=== PATIENT | female | born 1940 | race Caucasian/White ===

== ENCOUNTER 2018-03-24 11:48 | Inpatient (IN) ==
[2018-03-24] MEDS ORDERED: Mag Hydrox/Al Hydrox/Simeth 30 ML UDC PO PRN (22:29)
[2018-03-24] MEDS: Mirtazapine 15 MG TABLET PO SCH (23:45)
[2018-03-24] MEDS: Ipratropium/Albuterol Neb 3 ML IH SCH (23:47)
[2018-03-25] MEDS: Magic Mouthwash 10 ML UD Cup PO SCH ×4 (01:50→19:00)
[2018-03-25 06:21] LABS: INR 2.1; Prothrombin Time 23.3 Seconds (9.4-12.1)
[2018-03-25 06:23] LABS: Basophils # 0.1 K/mcL (0.0-0.2); Basophils % 0.3 %; Eosinophils % 0.1 %; Hematocrit 30.4 % (35.3-44.9); Hemoglobin 9.3 g/dL (11.5-15.4); Immature Granulocytes % 3.6 % (0-4); Lymphocytes # 1.6 K/mcL (0.6-4.6); Lymphocytes % 5.7 %; Mean Corpuscular HGB Conc 30.6 g/dL (31.6-35.5); Mean Corpuscular Hemoglobin 25.7 pg (28.0-33.3); Mean Platelet Volume 12.4 fL (9.4-12.4); Monocytes # 13.7 K/mcL (0.0-1.3); Monocytes % 49.2 %; Neutrophils # 11.5 K/mcL (1.6-8.9); Platelet Count 137 K/mcL (140-400); Red Blood Count 3.62 M/mcL (3.82-4.97); Red Cell Distribution Width 17.3 % (11.5-14.5); Segmented Neutrophils % 41.1 %
[2018-03-25 06:24] LABS: Activated Partial Thrombo Time 41.3 Seconds (26.0-36.0)
[2018-03-25 06:33] LABS: Alanine Aminotransferase 8 Units/L (7-52); Albumin 3.5 g/dL (3.5-5.7); Albumin/Globulin Ratio 1.3 (1.1-2.2); Alkaline Phosphatase 47 Units/L (34-104); Aspartate Amino Transferase 8 Units/L (13-39); BUN/Creatinine Ratio 20 (6-26); Bilirubin,Total 1.6 mg/dL (0.3-1.0); Blood Urea Nitrogen 12 mg/dL (8-23); Calcium 8.8 mg/dL (8.6-10.3); Carbon Dioxide 29 mEq/L (23-29); Chloride 103 mEq/L (98-107); Globulin 2.7 g/dL (2.4-3.5); Glucose 87 mg/dL (70-105); Magnesium 1.7 mg/dL (1.6-2.6); Osmolality,Calculated 287 (280-300); Potassium 3.4 mEq/L (3.5-5.1); Sodium 139 mEq/L (136-145); Total Protein 6.2 g/dL (6.4-8.9); eGFR For Non-African Americans > 60 (> 60)
[2018-03-25] MEDS: Ascorbic Acid 500 MG TABLET PO SCH (08:58)
[2018-03-25] MEDS: Fluconazole 100 MG TABLET PO SCH (08:58)
[2018-03-25] MEDS: Magnesium Oxide 400 MG TABLET PO SCH (08:58)
[2018-03-25] MEDS: traMADol 50 MG TABLET PO PRN ×2 (08:59→20:45)
[2018-03-25] MEDS ORDERED: Calcium 500-Vit D3 PO SCH (09:00)
[2018-03-25] MEDS: Ipratropium/Albuterol Neb 3 ML IH SCH ×2 (09:01→12:32)
[2018-03-25] MEDS: Apixaban 5 MG TABLET PO SCH ×2 (09:03→18:13)
[2018-03-25] MEDS: Ondansetron ODT 4 MG TAB.RAPDIS PO PRN (10:15)
[2018-03-25] MEDS ORDERED: Ipratropium/Albuterol Neb 3 ML IH PRN (12:34)
--- NOTE | 2018-03-25 13:24 | Internal Med History&Physical ---
Date of Encounter: 03/25/18 Time of Encounter: 11:20 Assessment and Plan (1) Weakness Current visit: No Status: Acute This is probably related to her weakness from malnutrition, her prior strokes, and her many recent illness episodes. We will support patient medically and she will undergo therapies to return her to functionality. She would like to return home and yet I suspect that she will require long-term care after rehabilitation here. Hopefully, we will see and offer improvement in strength that she can return home, sometimes soon. (2) COPD (chronic obstructive pulmonary disease) Current visit: No Status: Resolved This is apparently mild enough that she does not require home oxygen or nebulizers on a routine basis. Qualifiers: COPD type: COPD with acute exacerbation Qualified Code(s): J44.1 - Chronic obstructive pulmonary disease with (acute) exacerbation (3) DVT prophylaxis Current visit: No Status: Acute She is on Eliquis as noted above. 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 Qualifiers: Leukemia Active/Remission status: in remission Qualified Code(s): C93.11 - Chronic myelomonocytic leukemia, in remission (5) Afib Current visit: No Status: Chronic Currently, her rate and rhythm appear to be normal sinus rhythm. This is by clinical assessment only. Qualifiers: Atrial fibrillation type: paroxysmal Qualified Code(s): I48.0 - Paroxysmal atrial fibrillation (6) Abnormal CT of the chest Current visit: No Status: Acute Per her history, this is been present for at least 2 years and no change in s ize. (7) Severe protein-calorie malnutrition Current visit: No Status: Chronic We will consult nutrition services and follow. (8) Thrombocytopenia Current visit: No Status: Chronic We will follow. This is presumed to relate to her CMML. (9) KATJA (acute kidney injury) Current visit: No Status: Resolved This is not acute but we will follow. (10) Thrush, oral Current visit: Yes Status: Acute We have empirically begun Diflucan for same. (11) History of cold-induced urticaria Current visit: Yes Status: Acute Given her multiple strokes and other symptoms, we will obtain cold movements and further evaluate as time allows. (12) CVA (cerebral vascular accident) Current visit: Yes Status: Acute This is apparently recurrent and old. The patient denies hyperlipidemia but she is on a statin drug for uncertain reasons, apparently prophylactic. Qualifiers: CVA mechanism: unspecified Qualified Code(s): I63.9 - Cerebral infarction, unspecified Internal Medicine - H&P: HPI Chief complaint: Weakness Admitted From: Hospital to Hospital Transfer Plans for Post Hospital Care: Transfer [facility] History of present illness: Ms. Michelle is a 78 year old female with an extensive medical history who was in her usual state of health, recently, until 03/14/2018. Then she had cough and dyspnea. She was admitted and found to have pneumonia, required intubation. She had an episode of PA and underwent to episodes of ACLS with resumption of circulation, thereafter. This was felt to be aspiration related to her receiving liquids that were too thin. She has chest wall pain, anteriorly, after her CPR. She has been doing progressively better and is now admitted for weakness and reconditioning, here. The patient notes that her tongue is starting to hurt. His been years since she had her last episode of thrush and it was much worse than this. However, symptoms of her tongue seem like early thrush, to her. She has no dysphagia now but did the last time that she had thrush. Past medical history was reviewed with her. She has allergies as listed. She had paroxysmal atrial fibrillation and underwent catheter ablation in August. However, they punctured her heart and she developed effusions which required 3 chest tubes to correct, over time. She has been on Eliquis for some time. The Eliquis was held at the time of her cardiac arrest because she developed blood in her chest and this was cleared by bronchoscopy. Her Eliquis was resumed. She has had multiple episodes of pneumonia and was admitted for same, in the past. She had a recurrent localized effusion, at the time of her recent pneumonia and was intubated for same on this admission. She is known to have a 2 to three-year history of nodules in her neck and a large nodule in her lung but this is apparently remained stable and is felt to be benign. 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 Her white blood count was recently as high as 40,000+ but returned to low low 30s which apparently is somewhere near her baseline. She has 3 strokes which have mainly made her leg, left worse than right, and have caused her to be unstable. Nothing has been worse, recently. However, when she is weakened from other illnesses, her leg weakness and instability increase. She had an MRI this admission which failed to show any evidence of new stroke. 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 She states that if any part of her body becomes cold she develops itching, urticaria, and swelling. She states that even ice cream will make her throat swell. She is unaware of cold agglutinins. However, she was treated for 10 days with doxycycline which began 03/04/2018. She is also on prednisone 40 mg daily but is not sure as to why. She has been constipated most of her life but has developed irritable bowel syndrome with diarrhea, or the last couple of years. She has not had a bowel movement for several days and we discussed use of laxatives, if she does not have one soon. She has been malnourished since August when she had her catheter ablation. She was taking iron in the remote past but has not been taking this for quite some time, even though it is listed on her home medication list. Past Med Surg Social Fam HX - Past Medical History Medical history: atrial fibrillation, COPD, CVA, GERD, hypertension Additional medical history: chronic myeloid leukemia, anemia, cerebral infarction Psychiatric history: anxiety - Past Surgical History Surgical History: no surgical history Additional surgical history: cardiac surgery - Social History Smoking Status: Never smoker Smokeless Tobacco Status: No Alcohol use: none Drug use: none - Family History Father Living Status: Hx Family Cardiac Disorders: No Hx Family Respiratory Disorders: Yes (lung cancer) Hx Family Cancer: Yes (lung cancer) Hx Family GI Disorders: No Hx Family Endocrine Disorder: No Hx Family Neuromuscular Disorders: No Hx Family Neurologic Disorders: No Hx Family HEENT Disorders: No Hx Family Autoimmune Disorders: No Mother Living Status: Hx Family Cardiac Disorders: No Hx Family Respiratory Disorders: No Hx Family Cancer: No Hx Family GI Disorders: No Hx Family Endocrine Disorder: No Hx Family Neuromuscular Disorders: No Hx Family Neurologic Disorders: No Hx Family HEENT Disorders: No Hx Family Autoimmune Disorders: No Sister Living Status: Still Living Hx Family Cardiac Disorders: Yes (heart murmur) Hx Family Respiratory Disorders: No Hx Family Cancer: No Hx Family GI Disorders: No Hx Family Endocrine Disorder: No Hx Family Neuromuscular Disorders: No Hx Family Neurologic Disorders: No Hx Family HEENT Disorders: No Hx Family Autoimmune Disorders: No Son Living Status: Still Living Hx Family Cardiac Disorders: Yes (heart defect) Hx Family Respiratory Disorders: No Hx Family Cancer: No Hx Family GI Disorders: No Hx Family Endocrine Disorder: No Hx Family Neuromuscular Disorders: No Hx Family Neurologic Disorders: Yes Hx Family HEENT Disorders: No Hx Family Autoimmune Disorders: No Internal Medicine - H&P: Meds Sotalol [Betapace] 40 mg PO QAM 09/19/14 [History] Sotalol [Betapace] 80 mg PO HS 05/23/16 [History] Acetaminophen [Tylenol] 650 mg PO Q4H PRN 02/16/18 [History] Apixaban [Eliquis] 5 mg PO 0800,1900 02/16/18 [History] Ascorbic Acid [Vitamin C] 250 mg PO DAILY 02/16/18 [History] Atorvastatin [Lipitor] 20 mg PO HS 02/16/18 [History] Calcium Carbonate/Vitamin D3 [Calcium 500-Vit D3 200 Tablet] 1 each PO BID 02/16/18 [History] Ipratropium/Albuterol Neb [Duoneb] 3 ml IH 0800,1200,1600,2000 02/16/18 [History] Loperamide HCl [Imodium A-D] 2 mg PO AD PRN 02/16/18 [History] Mag Hydrox/Aluminum Hyd/Simeth [Cvs Antacid Plus Anti-Gas Liq] 30 ml PO QID PRN 02/16/18 [History] Magnesium Oxide [Mag-Ox] 400 mg PO DAILY 02/16/18 [History] Mirtazapine 7.5 mg PO HS 02/16/18 [History] Ondansetron HCl [Zofran] 4 mg PO Q6HR PRN 02/16/18 [History] Pantoprazole Sodium [Protonix] 40 mg PO DAILY 02/16/18 [History] Sennosides/Docusate Sodium [Senna-S Tablet] 1 each PO BID PRN 02/16/18 [History] Losartan Potassium 25 mg PO DAILY 03/14/18 [History] 3 Allergy/AdvReac Type Severity Reaction Status Date / Time sulfamethoxazole AdvReac Unknown Nausea Verified 02/16/18 14:49 [From Bactrim] levofloxacin [From Levaquin] AdvReac See Verified 02/16/18 14:49 Comments nitrofurantoin AdvReac See Verified 02/16/18 14:49 [From Macrobid] Comments trimethoprim [From Bactrim] AdvReac Nausea Verified 02/16/18 14:49 All Systems PM: A 10-system review of systems was performed and is negative for pertinent findings except as documented above in the HPI. Review of systems: She has difficulty speaking because she does not have her dentures in. She wears full dentures. Malnutrition as noted above. She has a tender area at her tailbone and has had a dressing placed for same. However, she is told there is no open wound. Patient has no complaint of chest discomfort, dyspnea, orthopnea, breathing problems, palpitations, nausea or vomiting, constipation or diarrhea, other changes in bowel habits, heartburn, difficulty with urination, kidney problems or kidney stones, fevers chills or sweats, rash or itching, seizures, headache or lightheadedness, heat or cold intolerance, blood problems or anemia, or other new complaints, except as mentioned above. Review of systems is otherwise negative. - Constitutional Vitals: Temp Pulse Resp BP Pulse Ox 98.0 F 90 16 108/51 93 03/25/18 08:00 03/25/18 12:43 03/25/18 12:43 03/25/18 08:00 03/25/18 12:43 Exam: Examination: (Except as mentioned above): General: In no apparent distress, alert and oriented 3. Head: Atraumatic and normocephalic. Eyes: Extraocular muscles are intact, pupils equal round and reactive to light and accommodation. Sclerae anicteric. Ears: External ears are normal to inspection and hearing is grossly normal. Nose: Patent without lesion noted. Mouth: She is edentulous. Tongue is reddened but not for road and throat looks normal. Neck: Supple with trachea midline. There is no thyromegaly or adenopathy and carotids are 2+ without bruit heard. I am unable to palpate her neck nodule which she said is normal for her exam. Respiratory: No use of accessory muscles. Lungs are clear throughout. I hear no rales or rhonchi. Normal airflow. Cardiovascular: Regular rate and rhythm without murmur appreciated. Abdomen: Bowel sounds are normal. No hepatosplenomegaly masses or tenderness. Obese and therefore difficult to palpate deeply. Extremities: No cyanosis clubbing or edema. Neurological: A and O 3. Cranial nerves II through XII are intact. No focal deficits and no abnormal movements or postures. Skin: Warm and non-diaphoretic with no lesions noted. She has an area at her coccyx which is red but there is no skin breakdown. In other words, this is stage I decubitus. Breasts, pelvic and rectal: Not examined. Internal Med - H&P Results - Labs CBC & Chem 7: 03/25/18 05:25 03/25/18 05:25 Labs: Short CBC 03/25/18 Range/Units 05:25 WBC 27.9 H (4.3-11.1) K/mcL Hgb 9.3 L (11.5-15.4) g/dL Hct 30.4 L (35.3-44.9) % Plt Count 137 L (140-400) K/mcL Neutrophils # 11.5 H (1.6-8.9) K/mcL BMP 03/25/18 05:25 Sodium 139 Potassium 3.4 L Chloride 103 Carbon Dioxide 29 BUN 12 Creatinine 0.60 Glucose 87 Calcium 8.8 Liver Function 03/25/18 Range/Units 05:25 Total Bilirubin 1.6 H (0.3-1.0) mg/dL AST 8 L (13-39) Units/L ALT 8 (7-52) Units/L Alkaline Phosphatase 47 (34-104) Units/L Albumin 3.5 (3.5-5.7) g/dL
[2018-03-25] MEDS: Mirtazapine 15 MG TABLET PO SCH (20:45)
[2018-03-26] MEDS: Magic Mouthwash 10 ML UD Cup PO SCH ×3 (06:33→17:20)
[2018-03-26] MEDS: traMADol 50 MG TABLET PO PRN ×2 (06:36→20:05)
[2018-03-26] MEDS: Magnesium Oxide 400 MG TABLET PO SCH (08:16)
[2018-03-26] MEDS: Fluconazole 100 MG TABLET PO SCH (08:16)
[2018-03-26] MEDS: Cholecalciferol (D-3) 1,000 UNIT TABLET PO SCH (08:16)
[2018-03-26] MEDS: Ascorbic Acid 500 MG TABLET PO SCH (08:17)
[2018-03-26] MEDS: Apixaban 5 MG TABLET PO SCH ×2 (08:21→17:48)
--- NOTE | 2018-03-26 15:13 | Internal Med Progress Note ---
Date of Encounter: 03/27/18 Time of Encounter: 15:12 - Assessment and plan (1) Weakness Current Visit: No Status: Acute Assessment and plan: The patient will have therapies as planned, resuming tomorrow as she is off for Tuesday, today. (2) COPD (chronic obstructive pulmonary disease) Current Visit: No Status: Resolved Assessment and plan: We will keep an eye on how she does with her recent problems with pleural effusion, etc. We will try to wean oxygen if possible. Qualifiers: COPD type: COPD with acute exacerbation Qualified Code(s): J44.1 - Chronic obstructive pulmonary disease with (acute) exacerbation (3) DVT prophylaxis Current Visit: No Status: Acute Assessment and plan: Patient is on Eliquis. (4) CMML (chronic myelomonocytic leukemia) Current Visit: No Status: Chronic Assessment and plan: Clinically stable. Qualifiers: Leukemia Active/Remission status: in remission Qualified Code(s): C93.11 - Chronic myelomonocytic leukemia, in remission (5) Afib Current Visit: No Status: Chronic Assessment and plan: She is in sinus rhythm to exam. Qualifiers: Atrial fibrillation type: paroxysmal Qualified Code(s): I48.0 - Paroxysmal atrial fibrillation (6) Abnormal CT of the chest Current Visit: No Status: Acute Assessment and plan: This is apparently chronic and unchanged. (7) Severe protein-calorie malnutrition Current Visit: No Status: Chronic Assessment and plan: She is to have a nutrition consult, tomorrow. (8) Thrombocytopenia Current Visit: No Status: Chronic Assessment and plan: Mild and apparently stable. Repeat CBC tomorrow. (9) KATJA (acute kidney injury) Current Visit: No Status: Resolved Assessment and plan: Apparently stable. (10) Thrush, oral Current Visit: Yes Status: Acute Assessment and plan: Symptomatically improved, on Diflucan. (11) History of cold-induced urticaria Current Visit: Yes Status: Acute Assessment and plan: No acute issues. (12) CVA (cerebral vascular accident) Current Visit: Yes Status: Acute Assessment and plan: Clinically stable but with swallowing difficulties as noted. Qualifiers: CVA mechanism: unspecified Qualified Code(s): I63.9 - Cerebral infarction, unspecified - Subjective Interval history: Patient complains of mild vaginal itching. She prefers to use cream rather than pills for same. Patient states that she finds a remarkable that she has not coughed today, at all. She is using her incentive spirometer regularly. Patient has no complaint of chest discomfort, dyspnea, orthopnea, palpitations, nausea or vomiting, constipation or diarrhea, other changes in bowel habits, difficulty with urination, rash or itching, or other new complaints, except as mentioned above. Review of systems is otherwise negative. I discussed management of her care with nursing staff. - Constitutional Vitals: Temp Pulse Resp BP Pulse Ox 98.1 F 68 18 101/63 98 03/26/18 07:10 03/26/18 07:10 03/26/18 07:10 03/26/18 07:10 03/26/18 07:10 Exam: Examination: (Except as mentioned above): General: In no apparent distress. Alert and oriented 3. Nondiaphoretic. Head: Atraumatic and normocephalic. Respiratory: No use of accessory muscles. Lungs are clear throughout. Normal airflow. Cardiovascular: Regular rate and rhythm without murmur appreciated. Abdomen: Bowel sounds are normal. No hepatosplenomegaly mass or tenderness appreciated. Obese and therefore difficult to palpate deeply. Patient is examined upright in chair and this also limits exam. Extremities: No cyanosis clubbing or edema. Skin: Warm and non-diaphoretic with no new lesions noted. Internal Medicine: Result - Labs CBC & Chem 7: 03/27/18 05:30 03/27/18 05:30 - ABG Interpretation ABG results: PT/INR, D-dimer PT 23.3 Seconds (9.4-12.1) H 03/25/18 05:25 Consult Discharge Plan - Plan Referrals: Hammad Romero MD [Primary Care Provider] -
[2018-03-26] MEDS: Clotrimazole Vag CRM 45 GM TUBE VG SCH (19:55)
[2018-03-26] MEDS: Mirtazapine 15 MG TABLET PO SCH (19:55)
[2018-03-27] MEDS: traMADol 50 MG TABLET PO PRN ×2 (05:41→20:47)
[2018-03-27 05:52] LABS: Basophils # 0.1 K/mcL (0.0-0.2); Basophils % 0.2 %; Eosinophils % 0.1 %; Hematocrit 28.8 % (35.3-44.9); Hemoglobin 8.8 g/dL (11.5-15.4); Immature Granulocytes % 3.9 % (0-4); Lymphocytes # 3.5 K/mcL (0.6-4.6); Lymphocytes % 14.3 %; Mean Corpuscular HGB Conc 30.6 g/dL (31.6-35.5); Mean Platelet Volume 12.4 fL (9.4-12.4); Neutrophils # 9.3 K/mcL (1.6-8.9); Platelet Count 122 K/mcL (140-400); Red Blood Count 3.39 M/mcL (3.82-4.97); Red Cell Distribution Width 17.3 % (11.5-14.5); Segmented Neutrophils % 38.5 %
[2018-03-27 06:12] LABS: Alanine Aminotransferase 7 Units/L (7-52); Albumin 3.3 g/dL (3.5-5.7); Albumin/Globulin Ratio 1.3 (1.1-2.2); Alkaline Phosphatase 51 Units/L (34-104); Aspartate Amino Transferase 10 Units/L (13-39); BUN/Creatinine Ratio 18 (6-26); Bilirubin,Total 1.1 mg/dL (0.3-1.0); Blood Urea Nitrogen 13 mg/dL (8-23); Calcium 8.6 mg/dL (8.6-10.3); Carbon Dioxide 32 mEq/L (23-29); Chloride 105 mEq/L (98-107); Globulin 2.6 g/dL (2.4-3.5); Glucose 92 mg/dL (70-105); Osmolality,Calculated 294 (280-300); Potassium 4.3 mEq/L (3.5-5.1); Sodium 142 mEq/L (136-145); Total Protein 5.9 g/dL (6.4-8.9); eGFR For Non-African Americans > 60 (> 60)
[2018-03-27 06:33] LABS: Monocytes # 10.4 K/mcL (0.0-1.3)
[2018-03-27 06:38] LABS: Anisocytosis 1+ (Not Present); Macrocytosis Present (Not Present); Platelet Estimate Decreased (Normal); Reactive Lymphocytes Present (Not Present)
[2018-03-27] MEDS: Fluconazole 100 MG TABLET PO SCH (07:58)
[2018-03-27] MEDS: Cholecalciferol (D-3) 1,000 UNIT TABLET PO SCH (07:59)
[2018-03-27] MEDS: Magnesium Oxide 400 MG TABLET PO SCH (07:59)
[2018-03-27] MEDS: Ascorbic Acid 500 MG TABLET PO SCH (08:00)
[2018-03-27] MEDS: Magic Mouthwash 10 ML UD Cup PO SCH ×3 (08:01→17:17)
[2018-03-27] MEDS: Apixaban 5 MG TABLET PO SCH ×2 (09:47→20:46)
--- NOTE | 2018-03-27 13:49 | Internal Med Progress Note ---
Addendum entered and electronically signed by Devin Levy MD 03/28/18 13:03: I have personally performed a face to face evaluation on this patient. I have r eviewed and agree with the care plan. History and Exam by me shows: The patient was evaluated by me yesterday but the note was not complete. This documentation is being completed today for that reason. Patient is fatigued but otherwise without complaint. She is on or presyncope and she is feeling tired after therapy but otherwise is pleased that she is not using her BiPAP at night. She has not moved her bowels and we discussed use of laxatives. Discussed care with other providers and/or nursing. Patient has no complaint of chest discomfort, dyspnea, orthopnea, palpitations, nausea or vomiting, constipation or diarrhea, other changes in bowel habits, difficulty with urination, rash or itching, or other new complaints, except as mentioned above. Review of systems is otherwise negative. Examination: (Except as mentioned above): General: In no apparent distress. Alert and oriented 3. Nondiaphoretic. Head: Atraumatic and normocephalic. Respiratory: No use of accessory muscles. Right upper lung field with rales. This is different from yesterday. Normal airflow. Cardiovascular: Regular rate and rhythm without murmur appreciated. Abdomen: Bowel sounds are normal. No hepatosplenomegaly mass or tenderness appreciated. Extremities: No cyanosis clubbing or edema. Skin: Warm and non-diaphoretic with no new lesions noted. We will check a chest x-ray. Original Note: Date of Encounter: 03/27/18 Time of Encounter: 13:47 - Assessment and plan (1) Weakness Current Visit: Yes Status: Acute Assessment and plan: Continue PT and OT. Will follow progress. (2) Thrush, oral Current Visit: Yes Status: Acute Assessment and plan: Improving with magic mouthwash and Diflucan. 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 Continue inhaled meds. Continue O2 per nasal cannula. Qualifiers: COPD type: COPD with acute exacerbation Qualified Code(s): J44.1 - Chronic obstructive pulmonary disease with (acute) exacerbation (5) Afib Current Visit: Yes Status: Chronic Assessment and plan: Rhythm stable. Continue eliquis Qualifiers: Atrial fibrillation type: paroxysmal Qualified Code(s): I48.0 - Paroxysmal atrial fibrillation - Time Spent With Patient less than 15 minutes - Subjective Interval history: Participating well with therapy. Has some shortness of breath with exertion. Maintaining oxygen sets greater than 96% on 2 L per nasal cannula. Denies any other pain, fever, chills, nausea vomiting or diarrhea. Last bowel movement was this morning. - Constitutional Vitals: Temp Pulse Resp BP Pulse Ox 98.6 F 69 16 104/63 96 03/27/18 06:48 03/27/18 06:48 03/27/18 06:48 03/27/18 06:48 03/27/18 08:59 General appearance: Present: A&O X 3, pleasant, no acute distress, answers questions appropriately Exam: Thin and frail - Head Head exam: Present: atraumatic, normocephalic - Eye Eye exam: Present: PERRL, conjuntiva pink, sclera anicteric Pupils: Present: PERRL - Neck Neck exam general surgery: Present: supple, trachea midline. Absent: lymphadenopathy - Respiratory Respiratory exam: Present: CTAB. Absent: accessory muscle use, rales, rhonchi, wheezes - Cardiovascular Cardiovascular exam: Present: irregular rhythm, +S1, +S2. Absent: diastolic murmur, gallop, rubs, systolic murmur - GI/Abdominal GI/Abdominal exam: Present: normal bowel sounds, soft, no peritoneal signs. Absent: distended, tenderness - Extremities Exam Extremities exam: Present: warm, radial pulses palpable and symmetrical. Absent: calf tenderness, cyanotic, pedal edema - Neurological Exam Neurological exam: Present: CN II-XII intact, oriented X3, no focal deficits. Absent: pronater drift, facial droop, speech deficit - Skin Skin exam: Present: dry, intact Internal Medicine: Result - Labs CBC & Chem 7: 03/27/18 05:30 03/27/18 05:30 Labs: Short CBC 03/27/18 Range/Units 05:30 WBC 24.1 H (4.3-11.1) K/mcL Hgb 8.8 L (11.5-15.4) g/dL Hct 28.8 L (35.3-44.9) % Plt Count 122 L (140-400) K/mcL Neutrophils # 9.3 H (1.6-8.9) K/mcL BMP 03/27/18 05:30 Sodium 142 Potassium 4.3 Chloride 105 Carbon Dioxide 32 H BUN 13 Creatinine 0.71 Glucose 92 Calcium 8.6 Liver Function 03/27/18 Range/Units 05:30 Total Bilirubin 1.1 H (0.3-1.0) mg/dL AST 10 L (13-39) Units/L ALT 7 (7-52) Units/L Alkaline Phosphatase 51 (34-104) Units/L Albumin 3.3 L (3.5-5.7) g/dL - ABG Interpretation ABG results: PT/INR, D-dimer PT 23.3 Seconds (9.4-12.1) H 03/25/18 05:25 Consult Discharge Plan - Plan Referrals: Hammad Romero MD [Primary Care Provider] -
[2018-03-27] MEDS: Clotrimazole Vag CRM 45 GM TUBE VG SCH (20:46)
[2018-03-27] MEDS: Mirtazapine 15 MG TABLET PO SCH (20:46)
[2018-03-28] MEDS: traMADol 50 MG TABLET PO PRN ×2 (08:24→20:13)
[2018-03-28] MEDS: Fluconazole 100 MG TABLET PO SCH (08:25)
[2018-03-28] MEDS: Ascorbic Acid 500 MG TABLET PO SCH (08:25)
[2018-03-28] MEDS: Cholecalciferol (D-3) 1,000 UNIT TABLET PO SCH (08:25)
[2018-03-28] MEDS: Magnesium Oxide 400 MG TABLET PO SCH (08:25)
[2018-03-28] MEDS: Apixaban 5 MG TABLET PO SCH ×2 (08:29→20:12)
[2018-03-28] MEDS: Magic Mouthwash 10 ML UD Cup PO SCH ×3 (08:30→16:30)
[2018-03-28] MEDS: Ondansetron ODT 4 MG TAB.RAPDIS PO PRN (08:35)
--- NOTE | 2018-03-28 11:44 | Internal Med Progress Note ---
Addendum entered and electronically signed by Devin Levy MD 03/28/18 13:06: I have personally performed a face to face evaluation on this patient. I have r eviewed and agree with the care plan. History and Exam by me shows: The patient is feeling well. She has some fatigue but generally is pleased with progress. She is afraid of what might be causing her problems and a friend of hers is concerned about seizure. There was a note from her initial admission that she might have seizure disorder but later this was felt to be cardiac. I told her to report any seizure disorder and that she would be monitored for same but I did not think this was seizure. If this is a persistent concern, she can have outpatient EEG, etc. Nursing notes that she had some dizziness earlier this morning but this past. No focal changes with this. Discussed care with other providers and/or nursing. Patient has no complaint of chest discomfort, dyspnea, orthopnea, palpitations, nausea or vomiting, constipation or diarrhea, other changes in bowel habits, di fficulty with urination, rash or itching, or other new complaints, except as mentioned above. Review of systems is otherwise negative. Examination: (Except as mentioned above): General: In no apparent distress. Alert and oriented 3. Nondiaphoretic. Head: Atraumatic and normocephalic. Respiratory: No use of accessory muscles. Lungs are clear throughout. This is an improvement over yesterday. Normal airflow. Cardiovascular: Regular rate and rhythm without murmur appreciated. Abdomen: Bowel sounds are normal. No hepatosplenomegaly mass or tenderness appreciated. Patient is examined upright in chair and this also limits exam. Extremities: No cyanosis clubbing or edema. Skin: Warm and non-diaphoretic with no new lesions noted. Patient was seen by nutrition services yesterday but I do not have report of their consultations/note. Chest x-ray was the same to slightly improved. Note is made of her mass which was present on previous chest x-ray and CAT scan. Effusions were unchanged to slightly improved. Original Note: Date of Encounter: 03/28/18 Time of Encounter: 11:29 - Assessment and plan (1) Weakness Current Visit: Yes Status: Acute Assessment and plan: Continue PT and OT. Will follow progress. (2) Thrush, oral Current Visit: Yes Status: Acute Assessment and plan: Improving with magic mouthwash and Diflucan. 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 Continue inhaled meds. Continue O2 per nasal cannula. Qualifiers: COPD type: COPD with acute exacerbation Qualified Code(s): J44.1 - Chronic obstructive pulmonary disease with (acute) exacerbation (5) Afib Current Visit: Yes Status: Chronic Assessment and plan: Rhythm stable. Continue eliquis Qualifiers: Atrial fibrillation type: paroxysmal Qualified Code(s): I48.0 - Paroxysmal atrial fibrillation - Time Spent With Patient less than 15 minutes - Subjective Interval history: Participating well with therapy. min-CGA for transfers. Has some shortness of breath with exertion. Maintaining oxygen sets greater than 96% on 2 L per nasal cannula. Denies any other pain, fever, chills, nausea vomiting or diarrhea. Last bowel movement was this morning. - Constitutional Vitals: Temp Pulse Resp BP Pulse Ox 98.2 F 72 16 105/65 96 03/28/18 06:56 03/28/18 06:56 03/28/18 06:56 03/28/18 06:56 03/28/18 06:56 General appearance: Present: A&O X 3, pleasant, no acute distress, answers questions appropriately Exam: thin and frail - Head Head exam: Present: atraumatic, normocephalic - Eye Eye exam: Present: PERRL, conjuntiva pink, sclera anicteric Pupils: Present: PERRL - Neck Neck exam general surgery: Present: supple, trachea midline. Absent: lymphadenopathy - Respiratory Respiratory exam: Present: CTAB. Absent: accessory muscle use, rales, rhonchi, wheezes - Cardiovascular Cardiovascular exam: Present: RRR, +S1, +S2. Absent: diastolic murmur, gallop, rubs, systolic murmur - GI/Abdominal GI/Abdominal exam: Present: normal bowel sounds, soft, no peritoneal signs. Absent: distended, tenderness - Extremities Exam Extremities exam: Present: warm, radial pulses palpable and symmetrical. Absent: calf tenderness, cyanotic, pedal edema - Neurological Exam Neurological exam: Present: CN II-XII intact, oriented X3, no focal deficits. Absent: pronater drift, facial droop, speech deficit - Skin Skin exam: Present: dry, intact Internal Medicine: Result - Labs CBC & Chem 7: 03/27/18 05:30 03/27/18 05:30 - ABG Interpretation ABG results: PT/INR, D-dimer PT 23.3 Seconds (9.4-12.1) H 03/25/18 05:25 - Impressions Impressions Chest X-Ray 03/27/18 11:50 IMPRESSION: Unchanged left greater than right effusions. Round mass in the right lower lobe, for which contrast-enhanced CT scan of the chest is recommended. D/ / Cristhian Rendon MD / Cristhian Rendon MD Interpreting Provider: Cristhian Rendon MD Consult Discharge Plan - Plan Referrals: Hammad Romero MD [Primary Care Provider] -
[2018-03-28] MEDS: Mirtazapine 15 MG TABLET PO SCH (20:12)
[2018-03-28] MEDS: Clotrimazole Vag CRM 45 GM TUBE VG SCH (20:15)
[2018-03-29] MEDS: traMADol 50 MG TABLET PO PRN ×2 (05:09→22:26)
[2018-03-29] MEDS: Magnesium Oxide 400 MG TABLET PO SCH ×2 (07:54→22:26)
[2018-03-29] MEDS: Ondansetron ODT 4 MG TAB.RAPDIS PO PRN (07:54)
[2018-03-29] MEDS: Ascorbic Acid 500 MG TABLET PO SCH (07:54)
[2018-03-29] MEDS: Magic Mouthwash 10 ML UD Cup PO SCH ×3 (07:54→15:36)
[2018-03-29] MEDS: Cholecalciferol (D-3) 1,000 UNIT TABLET PO SCH (07:54)
[2018-03-29] MEDS: Apixaban 5 MG TABLET PO SCH ×2 (07:54→18:15)
--- NOTE | 2018-03-29 11:56 | Internal Med Progress Note ---
Addendum entered and electronically signed by Devin Levy MD 03/29/18 13:45: I have personally performed a face to face evaluation on this patient. I have r eviewed and agree with the care plan. History and Exam by me shows: Patient is without complaint. She had some nausea and dizziness with therapy this morning. However, she has been drinking and eating well and feels like she is fine, now. She still was not moving her bowels well. Discussed care with other providers and/or nursing. Patient has no complaint of chest discomfort, dyspnea, orthopnea, palpitations, nausea or vomiting, constipation or diarrhea, other changes in bowel habits, difficulty with urination, rash or itching, or other new complaints, except as mentioned above. Review of systems is otherwise negative. Examination: (Except as mentioned above): General: In no apparent distress. Alert and oriented 3. Nondiaphoretic. Head: Atraumatic and normocephalic. Respiratory: No use of accessory muscles. Lungs are clear throughout, except for left base rales.. Normal airflow. Cardiovascular: Regular rate and rhythm without murmur appreciated. Abdomen: Bowel sounds are normal. No hepatosplenomegaly mass or tenderness appreciated. Extremities: No cyanosis clubbing or edema. Skin: Warm and non-diaphoretic with no new lesions noted. Her exam is consistent with atelectasis and I asked her to continue to use her incentive spirometer. She agreed. Will give her a half dose of magnesium citrate for constipation. Original Note: Date of Encounter: 03/29/18 Time of Encounter: 11:54 - Assessment and plan (1) COPD (chronic obstructive pulmonary disease) Current Visit: Yes Status: Chronic Assessment and plan: Patient appears relaxed. Patient denies any dyspnea or productive cough. Note fine basilar rales. Patient continues to progress well with physical therapy. We will continue with current medications and bronchodilators. Qualifiers: COPD type: COPD with acute exacerbation Qualified Code(s): J44.1 - Chronic obstructive pulmonary disease with (acute) exacerbation (2) Nausea Current Visit: Yes Status: Acute Assessment and plan: Patient is a complaints of nausea which has responded well to Zofran. Patient states that despite chronic intermittent issue over past several months. Con tinue to monitor patient closely. No vomiting. (3) Afib Current Visit: Yes Status: Chronic Assessment and plan: No acute issues. Patient's ventricular rate has been well controlled less than 100. His blood pressure has been somewhat low with systolic in the 90s. Will evaluate patient's current scheduled medications. He denies any chest palpitations or discomforts. Qualifiers: Atrial fibrillation type: paroxysmal Qualified Code(s): I48.0 - Paroxysmal atrial fibrillation - Time Spent With Patient less than 15 minutes - Subjective Interval history: Patient appears relaxed, but currently c/o nausea. Stats that she has had chronic intermittent nausea for several months. States that sometimes it is oral intake that triggers her nausea, but other times she has no known triggers. Denies any vomiting. States that she has been taking Zofran, which has been effective. Denies any dyspnea or productive cough. Denies any discomforts. - Constitutional Vitals: Temp Pulse Resp BP Pulse Ox 98.2 F 70 18 95/60 93 03/29/18 06:00 03/29/18 06:00 03/29/18 06:00 03/29/18 06:00 03/29/18 07:00 General appearance: Present: A&O X 3, pleasant, no acute distress, answers questions appropriately - Head Head exam: Present: atraumatic, normocephalic - Eye Eye exam: Present: PERRL, conjuntiva pink, sclera anicteric Pupils: Present: PERRL - Neck Neck exam general surgery: Present: supple, trachea midline. Absent: lymphadenopathy - Respiratory Respiratory exam: Present: CTAB. Absent: accessory muscle use, rales, rhonchi, wheezes Additional comments: Fine bibasilar rales, otherwise lungs are CTA. RR relaxed with no productive cough noted. - Cardiovascular Cardiovascular exam: Present: RRR, +S1, +S2. Absent: diastolic murmur, gallop, rubs, systolic murmur - GI/Abdominal GI/Abdominal exam: Present: normal bowel sounds, soft, no peritoneal signs. Absent: distended, tenderness - Extremities Exam Extremities exam: Present: warm, radial pulses palpable and symmetrical. Absent: calf tenderness, cyanotic, pedal edema - Neurological Exam Neurological exam: Present: CN II-XII intact, oriented X3, no focal deficits. Absent: pronater drift, facial droop, speech deficit - Skin Skin exam: Present: dry, intact Internal Medicine: Result - Labs CBC & Chem 7: 02/11/19 05:30 03/27/18 05:30 - ABG Interpretation ABG results: PT/INR, D-dimer PT 23.3 Seconds (9.4-12.1) H 03/25/18 05:25 Consult Discharge Plan - Plan Referrals: Hammad Romero MD [Primary Care Provider] -
[2018-03-29 13:47] LABS: Basophils # 0.1 K/mcL (0.0-0.2); Basophils % 0.3 %; Eosinophils % 0.1 %; Hematocrit 30.1 % (35.3-44.9); Hemoglobin 9.3 g/dL (11.5-15.4); Immature Granulocytes % 2.8 % (0-4); Mean Corpuscular HGB Conc 30.9 g/dL (31.6-35.5); Mean Corpuscular Hemoglobin 26.2 pg (28.0-33.3); Mean Corpuscular Volume 84.8 fL (83.0-100.0); Mean Platelet Volume 12.6 fL (9.4-12.4); Monocytes # 14.3 K/mcL (0.0-1.3); Monocytes % 57.2 %; Neutrophils # 8.7 K/mcL (1.6-8.9); Platelet Count 125 K/mcL (140-400); Red Blood Count 3.55 M/mcL (3.82-4.97); Red Cell Distribution Width 17.6 % (11.5-14.5); Segmented Neutrophils % 34.6 %
[2018-03-29 14:42] LABS: Lymphocytes # 1.3 K/mcL (0.6-4.6)
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
[2018-03-29 16:05] LABS: Anisocytosis 1+ (Not Present); Platelet Estimate Normal (Normal); Poikilocytosis 1+ (Not Present)
[2018-03-29] MEDS: Clotrimazole Vag CRM 45 GM TUBE VG SCH (22:25)
[2018-03-29] MEDS: Mirtazapine 15 MG TABLET PO SCH (22:26)
[2018-03-30] MEDS: traMADol 50 MG TABLET PO PRN ×3 (05:47→21:12)
[2018-03-30] MEDS: Ondansetron ODT 4 MG TAB.RAPDIS PO PRN (08:12)
[2018-03-30] MEDS: Cholecalciferol (D-3) 1,000 UNIT TABLET PO SCH (08:13)
[2018-03-30] MEDS: Ascorbic Acid 500 MG TABLET PO SCH (08:13)
[2018-03-30] MEDS: Apixaban 5 MG TABLET PO SCH ×2 (08:13→18:02)
[2018-03-30] MEDS: Magic Mouthwash 10 ML UD Cup PO SCH ×3 (08:13→17:59)
[2018-03-30] MEDS: Magnesium Oxide 400 MG TABLET PO SCH ×2 (08:13→21:11)
--- NOTE | 2018-03-30 14:46 | Internal Med Progress Note ---
Date of Encounter: 03/30/18 Time of Encounter: 14:00 - Assessment and plan (1) Weakness Current Visit: Yes Status: Acute Assessment and plan: The patient will have therapies as planned. (2) COPD (chronic obstructive pulmonary disease) Current Visit: Yes Status: Chronic Assessment and plan: She is doing reasonably well and is still on a liter of oxygen by nasal cannula. She has not needed the BiPAP. We will discontinue her continuous pulse ox. Qualifiers: COPD type: COPD with acute exacerbation Qualified Code(s): J44.1 - Chronic obstructive pulmonary disease with (acute) exacerbation (3) DVT prophylaxis Current Visit: No Status: Acute Assessment and plan: Patient is on Eliquis. (4) CMML (chronic myelomonocytic leukemia) Current Visit: Yes Status: Chronic Assessment and plan: Clinically stable, without signs of infection. Qualifiers: Leukemia Active/Remission status: in remission Qualified Code(s): C93.11 - Chronic myelomonocytic leukemia, in remission (5) Afib Current Visit: Yes Status: Chronic Assessment and plan: Clinically in normal sinus rhythm. Qualifiers: Atrial fibrillation type: paroxysmal Qualified Code(s): I48.0 - Paroxysmal atrial fibrillation (6) Abnormal CT of the chest Current Visit: No Status: Acute Assessment and plan: This is stable, per patient history. (7) Severe protein-calorie malnutrition Current Visit: No Status: Chronic Assessment and plan: Evaluation and management in process and seems to be improving, clinically. We will reassess parameters early next week. (8) Thrombocytopenia Current Visit: No Status: Chronic Assessment and plan: Low-grade in stable. (9) KATJA (acute kidney injury) Current Visit: No Status: Resolved Assessment and plan: Apparently resolved. (10) Thrush, oral Current Visit: Yes Status: Acute Assessment and plan: Symptomatically improved. (11) History of cold-induced urticaria Current Visit: Yes Status: Acute (12) CVA (cerebral vascular accident) Current Visit: Yes Status: Acute Assessment and plan: Stable without new signs or symptoms. Qualifiers: CVA mechanism: unspecified Qualified Code(s): I63.9 - Cerebral infarction, unspecified - Subjective Interval history: Patient had a bad day yesterday and had more cough. She is pleased with the assistance instructions she received from nursing overnight. She had some nausea this morning but nausea medication helped and relieved. She had an episode of chest discomfort at the low chest which was worse with cough and she had a lot of coughing this morning. It is now well and she feels like she is doing fine. Patient has no complaint of chest discomfort, dyspnea, orthopnea, palpitations, nausea or vomiting, constipation or diarrhea, other changes in bowel habits, difficulty with urination, rash or itching, or other new complaints, except as mentioned above. Review of systems is otherwise negative. I discussed management of her care with nursing staff. - Constitutional Vitals: Temp Pulse Resp BP Pulse Ox 98.1 F 84 16 113/65 96 03/30/18 08:28 03/30/18 08:28 03/30/18 08:28 03/30/18 08:28 03/30/18 08:28 Exam: Examination: (Except as mentioned above): General: In no apparent distress. Alert and oriented 3. Nondiaphoretic. Head: Atraumatic and normocephalic. Respiratory: No use of accessory muscles. Lungs are clear throughout. Normal airflow. She has mild tenderness at the low chest wall. There is somewhat reproduces her chest discomfort. Cardiovascular: Regular rate and rhythm without murmur appreciated. Abdomen: Bowel sounds are normal. No hepatosplenomegaly mass or tenderness appreciated. Patient is examined upright in chair and this also limits exam. Extremities: No cyanosis clubbing or edema. Skin: Warm and non-diaphoretic with no new lesions noted. Internal Medicine: Result - Labs CBC & Chem 7: 03/29/18 13:19 03/27/18 05:30 Labs: Short CBC 03/29/18 Range/Units 13: Neutrophils # 8.7 (1.6-8.9) K/mcL - ABG Interpretation ABG results: PT/INR, D-dimer PT 23.3 Seconds (9.4-12.1) H 03/25/18 05:25 Consult Discharge Plan - Plan Referrals: Hammad Romero MD [Primary Care Provider] -
[2018-03-30] MEDS: Mirtazapine 15 MG TABLET PO SCH (21:11)
[2018-03-30] MEDS: Clotrimazole Vag CRM 45 GM TUBE VG SCH (21:11)
[2018-03-31] MEDS: traMADol 50 MG TABLET PO PRN ×2 (05:08→13:02)
[2018-03-31] MEDS: Cholecalciferol (D-3) 1,000 UNIT TABLET PO SCH (09:13)
[2018-03-31] MEDS: Magnesium Oxide 400 MG TABLET PO SCH ×2 (09:13→20:25)
[2018-03-31] MEDS: Ascorbic Acid 500 MG TABLET PO SCH (09:13)
[2018-03-31] MEDS: Magic Mouthwash 10 ML UD Cup PO SCH ×3 (09:14→16:51)
[2018-03-31] MEDS: Ondansetron ODT 4 MG TAB.RAPDIS PO PRN (09:14)
[2018-03-31] MEDS: Apixaban 5 MG TABLET PO SCH ×2 (09:14→18:07)
--- NOTE | 2018-03-31 10:12 | Internal Med Progress Note ---
Addendum entered and electronically signed by Lisa Mendiola 04/02/18 12:27: I have personally performed a face to face evaluation on this patient. I have reviewed and agree with the care plan. Original Note: Date of Encounter: 03/31/18 Time of Encounter: 10:10 - Assessment and plan (1) COPD (chronic obstructive pulmonary disease) Current Visit: Yes Status: Chronic Assessment and plan: Patient appears relaxed. Patient had an episode this morning of having a forceful cough resulting in shortness of breath. Patient recovered well after a nebulized treatment. We will obtain a chest x-ray for further evaluation. Will start patient on Mucinex. We will evaluate plan of care after x-ray results. Patient to continue with physical therapy as tolerated Qualifiers: COPD type: COPD with acute exacerbation Qualified Code(s): J44.1 - Chronic obstructive pulmonary disease with (acute) exacerbation (2) Nausea Current Visit: Yes Status: Acute Assessment and plan: Patient has had complaints of nausea which has responded well to Zofran. Patient states that despite chronic intermittent issue over past several months. Continue to monitor patient closely. No vomiting. (3) Afib Current Visit: Yes Status: Chronic Assessment and plan: No acute issues. Patient's ventricular rate has been well controlled less than 100. His blood pressure has been somewhat low with systolic in the 90s. Will evaluate patient's current scheduled medications. He denies any chest palpitations or discomforts. Qualifiers: Atrial fibrillation type: paroxysmal Qualified Code(s): I48.0 - Paroxysmal atrial fibrillation - Time Spent With Patient less than 15 minutes - Subjective Interval history: Patient appears relaxed and currently denies any discomforts or shortness of breath. Patient and nursing related that patient had an episode of shortness of breath this morning, during which time she was coughing and having trouble moving her sputum. Patient states that occasionally she has issues with a deep cough and thick sputum, during which time she will cough hard enough to make herself nauseated. Patient states that her episode this morning was similar to previous episodes as described. Patient reportedly was given a nebulizer treatment and improved afterwards. - Constitutional Vitals: Temp Pulse Resp BP Pulse Ox 97.9 F 79 16 130/66 92 03/31/18 07:31 03/31/18 07:31 03/31/18 07:31 03/31/18 07:31 03/31/18 07:31 General appearance: Present: A&O X 3, pleasant, no acute distress, answers questions appropriately - Head Head exam: Present: atraumatic, normocephalic - Eye Eye exam: Present: PERRL, conjuntiva pink, sclera anicteric Pupils: Present: PERRL - Neck Neck exam general surgery: Present: supple, trachea midline. Absent: lymphadenopathy - Respiratory Respiratory exam: Present: CTAB, rales. Absent: accessory muscle use, rhonchi, wheezes Additional comments: Lungs are clear throughout upper herbert but noted decreased breath sounds to the lower half of her lung herbert. Fine scattered rales for her to basilar herbert posteriorly. No productive cough noted. Respiratory effort appears relaxed. - Cardiovascular Cardiovascular exam: Present: RRR, +S1, +S2. Absent: diastolic murmur, gallop, rubs, systolic murmur - GI/Abdominal GI/Abdominal exam: Present: normal bowel sounds, soft, no peritoneal signs. Absent: distended, tenderness - Extremities Exam Extremities exam: Present: warm, radial pulses palpable and symmetrical. Absent: calf tenderness, cyanotic, pedal edema - Neurological Exam Neurological exam: Present: CN II-XII intact, oriented X3, no focal deficits. Absent: pronater drift, facial droop, speech deficit - Skin Skin exam: Present: dry, intact Internal Medicine: Result - Labs CBC & Chem 7: 03/29/18 13:19 03/27/18 05:30 - ABG Interpretation ABG results: PT/INR, D-dimer PT 23.3 Seconds (9.4-12.1) H 03/25/18 05:25 Consult Discharge Plan - Plan Referrals: Hammad Romero MD [Primary Care Provider] -
[2018-03-31] MEDS: Ipratropium/Albuterol Neb 3 ML IH SCH ×2 (15:27→18:32)
[2018-03-31] MEDS: Clotrimazole Vag CRM 45 GM TUBE VG SCH (20:25)
[2018-03-31] MEDS: Mirtazapine 15 MG TABLET PO SCH (20:25)
[2018-04-01 07:07] LABS: Hematocrit 26.1 % (35.3-44.9); Mean Corpuscular HGB Conc 30.7 g/dL (31.6-35.5); Mean Corpuscular Volume 84.7 fL (83.0-100.0); Mean Platelet Volume 12.7 fL (9.4-12.4); Red Blood Count 3.08 M/mcL (3.82-4.97); Red Cell Distribution Width 18.3 % (11.5-14.5)
[2018-04-01 07:09] LABS: Platelet Count 83 K/mcL (140-400)
[2018-04-01 07:18] LABS: Alanine Aminotransferase 4 Units/L (7-52); Albumin 3.1 g/dL (3.5-5.7); Albumin/Globulin Ratio 1.2 (1.1-2.2); Alkaline Phosphatase 60 Units/L (34-104); Aspartate Amino Transferase 9 Units/L (13-39); BUN/Creatinine Ratio 20 (6-26); Bilirubin,Total 0.6 mg/dL (0.3-1.0); Blood Urea Nitrogen 12 mg/dL (8-23); Calcium 8.1 mg/dL (8.6-10.3); Carbon Dioxide 25 mEq/L (23-29); Chloride 104 mEq/L (98-107); Globulin 2.5 g/dL (2.4-3.5); Glucose 96 mg/dL (70-105); Magnesium 1.4 mg/dL (1.6-2.6); Osmolality,Calculated 282 (280-300); Sodium 136 mEq/L (136-145); Total Protein 5.6 g/dL (6.4-8.9); eGFR For Non-African Americans > 60 (> 60)
[2018-04-01] MEDS: Magnesium Oxide 400 MG TABLET PO SCH ×2 (09:18→20:55)
[2018-04-01] MEDS: Acetaminophen 325 MG TABLET PO PRN (09:19)
[2018-04-01] MEDS: Cholecalciferol (D-3) 1,000 UNIT TABLET PO SCH (09:19)
[2018-04-01] MEDS: Ascorbic Acid 500 MG TABLET PO SCH (09:19)
[2018-04-01] MEDS: Ipratropium/Albuterol Neb 3 ML IH SCH ×4 (09:24→20:56)
[2018-04-01] MEDS: Magic Mouthwash 10 ML UD Cup PO SCH ×3 (09:24→14:20)
[2018-04-01] MEDS: Apixaban 5 MG TABLET PO SCH ×2 (09:24→17:49)
[2018-04-01] MEDS: traMADol 50 MG TABLET PO PRN ×2 (14:20→20:56)
--- NOTE | 2018-04-01 17:51 | Internal Med Progress Note ---
Date of Encounter: 04/02/18 Time of Encounter: 10:40 - Subjective Interval history: - Assessment and plan (1) COPD (chronic obstructive pulmonary disease) Current Visit: Yes Status: Chronic Assessment and plan: PT is weak and deconditioned. Patient showing some improvement in SOB at rest. STill very sob on exertion. PT still with cough She does well with nebulized treatment. Recent chest x-ray showed no acute changes . She is on Mucinex. Patient to continue with physical therapy as tolerated Qualifiers: COPD type: COPD with acute exacerbation Qualified Code(s): J44.1 - Chronic obstructive pulmonary disease with (acute) exacerbation (2) Nausea Current Visit: Yes Status: Acute Assessment and plan: Patient has had complaints of nausea which has responded well to Zofran. This is chronic. She has not been eating well. This may exacerbate her weakness. Continue to monitor patient closely. No vomiting. Pt did take some small amt today with encouragement but says no appetite. Start on Megace. Discussed with Deputy Chief Counsel. Diet supplements and encouragement (3) Afib Current Visit: Yes Status: Chronic Assessment and plan: No acute issues. Patient's ventricular rate has been well controlled less than 100. His blood pressure has been somewhat low with systolic in the 90s. Will evaluate patient's current scheduled medications. She denies any chest p alpitations or discomforts. Qualifiers: Atrial fibrillation type: paroxysmal Qualified Code(s): I48.0 - Paroxysmal atrial fibrillation - Time Spent With Patient less than 15 minutes - Subjective Interval history: Patient remains frail. She is easily fatigued. She denies changes in shortness of breath. Denies CP. Sputum is scant and clear. - Constitutional General appearance: Present:frail elderly - Head Head exam: Present: atraumatic, normocephalic - Eye Eye exam: Present: PERRL, conjuntiva pink, sclera anicteric Pupils: Present: PERRL - Neck Neck exam general surgery: Present: supple, trachea midline. Absent: lymphadenopathy - Respiratory Respiratory exam: Present: CTAB, rales. Absent: accessory muscle use, rhonchi, wheezes Additional comments: Lungs are clear throughout upper herbert but noted decreased breath sounds to the lower half of her lung herbert. Fine scattered rales for her to basilar herbert posteriorly. - Cardiovascular Cardiovascular exam: Present: RRR, +S1, +S2. Absent: diastolic murmur, gallop, rubs, systolic murmur - GI/Abdominal GI/Abdominal exam: Present: normal bowel sounds, soft, no peritoneal signs. Absent: distended, tenderness - Extremities Exam Extremities exam: Present: warm, radial pulses palpable and symmetrical. Absent: calf tenderness, cyanotic, pedal edema - Neurological Exam Neurological exam: Present: CN II-XII intact, oriented X3, no focal deficits. Absent: pronater drift, facial droop, speech deficit - Skin Skin exam: Present: dry, intact - Constitutional Vitals: Temp Pulse Resp BP Pulse Ox 97.9 F 73 15 105/65 96 04/01/18 07:35 04/01/18 07:35 04/01/18 07:35 04/01/18 07:35 04/01/18 07:35 Internal Medicine: Result - Labs CBC & Chem 7: 04/01/18 06:12 04/01/18 06:12 Labs: Short CBC 04/01/18 Range/Units 06:12 WBC 20.5 H (4.3-11.1) K/mcL Hgb 8.0 L (11.5-15.4) g/dL Hct 26.1 L (35.3-44.9) % Plt Count 83 L (140-400) K/mcL BMP 04/01/18 06:12 Sodium 136 Potassium 4.0 Chloride 104 Carbon Dioxide 25 BUN 12 Creatinine 0.61 Glucose 96 Calcium 8.1 L Liver Function 04/01/18 Range/Units 06:12 Total Bilirubin 0.6 (0.3-1.0) mg/dL AST 9 L (13-39) Units/L ALT 4 L (7-52) Units/L Alkaline Phosphatase 60 (34-104) Units/L Albumin 3.1 L (3.5-5.7) g/dL - ABG Interpretation ABG results: PT/INR, D-dimer PT 23.3 Seconds (9.4-12.1) H 03/25/18 05:25 Consult Discharge Plan - Plan Referrals: Hammad Romero MD [Primary Care Provider] -
[2018-04-01] MEDS: Mirtazapine 15 MG TABLET PO SCH (20:55)
[2018-04-01] MEDS: Clotrimazole Vag CRM 45 GM TUBE VG SCH (20:55)
[2018-04-02] MEDS: traMADol 50 MG TABLET PO PRN ×2 (06:09→20:42)
[2018-04-02] MEDS: Ipratropium/Albuterol Neb 3 ML IH SCH ×4 (07:09→18:39)
[2018-04-02] MEDS: Ascorbic Acid 500 MG TABLET PO SCH (09:27)
[2018-04-02] MEDS: Cholecalciferol (D-3) 1,000 UNIT TABLET PO SCH (09:28)
[2018-04-02] MEDS: Magnesium Oxide 400 MG TABLET PO SCH ×2 (09:28→20:41)
[2018-04-02] MEDS: Magic Mouthwash 10 ML UD Cup PO SCH ×3 (09:28→18:24)
[2018-04-02] MEDS: Apixaban 5 MG TABLET PO SCH ×2 (09:28→18:24)
[2018-04-02] MEDS: Acetaminophen 325 MG TABLET PO PRN (09:28)
--- NOTE | 2018-04-02 12:37 | Internal Med Progress Note ---
Date of Encounter: 04/02/18 Time of Encounter: 11:15 - Subjective Interval history: - Assessment and plan (1) COPD (chronic obstructive pulmonary disease) Current Visit: Yes Status: Chronic Assessment and plan: PT is weak and deconditioned. Patient showing some improvement in SOB at rest. STill very sob on exertion. PT still with cough She does well with nebulized treatment. Recent chest x-ray showed no acute changes . She is on Mucinex. Patient to continue with physical therapy as tolerated Qualifiers: COPD type: COPD with acute exacerbation Qualified Code(s): J44.1 - Chronic obstructive pulmonary disease with (acute) exacerbation (2) Nausea Current Visit: Yes Status: Acute Assessment and plan: eating slight better today Patient has had complaints of nausea which has responded well to Zofran. This is chronic. She has not been eating well. This may exacerbate her weakness. Continue to monitor patient closely. No vomiting. Pt did take some small amt today with encouragement but says no appetite. Started on Megace. Second day. Discussed with Customer Support Technician. Diet supplements and encouragement (3) Afib Current Visit: Yes Status: Chronic Assessment and plan: No acute issues. Patient's ventricular rate has been well controlled less than 100. His blood pressure has been somewhat low with systolic in the 90s. Will evaluate patient's current scheduled medications. She denies any chest palpitations or discomforts. Qualifiers: Atrial fibrillation type: paroxysmal Qualified Code(s): I48.0 - Paroxysmal atrial fibrillation - Time Spent With Patient less than 15 minutes - Subjective Interval history: Patient remains frail. She is easily fatigued. She denies changes in shortness of breath. Denies CP. Sputum is scant and clear. - Constitutional General appearance: Present:frail elderly female - Head Head exam: Present: atraumatic, normocephalic - Eye Eye exam: Present: PERRL, conjuntiva pink, sclera anicteric Pupils: Present: PERRL - Neck Neck exam general surgery: Present: supple, trachea midline. Absent: lymph adenopathy - Respiratory Respiratory exam: Present: CTAB, rales. Absent: accessory muscle use, rhonchi, wheezes Additional comments: Lungs are clear throughout upper herbert but noted decreased breath sounds to the lower half of her lung herbert. Fine scattered rales for her to basilar herbert posteriorly. - Cardiovascular Cardiovascular exam: Present: RRR, +S1, +S2. Absent: diastolic murmur, gallop, rubs, systolic murmur - GI/Abdominal GI/Abdominal exam: Present: normal bowel sounds, soft, no peritoneal signs. Absent: distended, tenderness - Extremities Exam Extremities exam: Present: warm, radial pulses palpable and symmetrical. Absent: calf tenderness, cyanotic, pedal edema - Neurological Exam Neurological exam: Present: CN II-XII intact, oriented X3, no focal deficits. Absent: pronater drift, facial droop, speech deficit - Skin Skin exam: Present: dry, intact - Constitutional Vitals: Temp Pulse Resp BP Pulse Ox 97.9 F 80 18 111/56 93 04/02/18 07:30 04/02/18 07:30 04/02/18 12:34 04/02/18 07:30 04/02/18 12:34 Internal Medicine: Result - Labs CBC & Chem 7: 04/01/18 06:12 04/01/18 06:12 - ABG Interpretation ABG results: PT/INR, D-dimer PT 23.3 Seconds (9.4-12.1) H 03/25/18 05:25 Consult Discharge Plan - Plan Referrals: Hammad Romero MD [Primary Care Provider] -
[2018-04-02] MEDS: Mirtazapine 15 MG TABLET PO SCH (20:41)
[2018-04-03] MEDS: traMADol 50 MG TABLET PO PRN ×2 (05:30→12:52)
[2018-04-03] MEDS: Magnesium Oxide 400 MG TABLET PO SCH ×2 (08:28→19:51)
[2018-04-03] MEDS: Ascorbic Acid 500 MG TABLET PO SCH (08:28)
[2018-04-03] MEDS: Magic Mouthwash 10 ML UD Cup PO SCH ×3 (08:28→16:52)
[2018-04-03] MEDS: Cholecalciferol (D-3) 1,000 UNIT TABLET PO SCH (08:28)
[2018-04-03] MEDS: Ipratropium/Albuterol Neb 3 ML IH SCH ×4 (08:31→19:50)
[2018-04-03] MEDS: Apixaban 5 MG TABLET PO SCH ×2 (08:31→17:55)
[2018-04-03] MEDS ORDERED: Fluconazole 100 MG TABLET PO ONE (09:00)
--- NOTE | 2018-04-03 11:33 | Internal Med Progress Note ---
Addendum entered and electronically signed by Devin Levy MD 04/03/18 16:23: I have personally performed a face to face evaluation on this patient. I have r eviewed and agree with the care plan. History and Exam by me shows: Patient has been weak over the weekend and feeling slightly better today. She feels that her breathing is better but her cough is worse. She is pleased that she is able to be off oxygen and has not been using BiPAP. Bowels move frequently over the weekend but she has no diarrhea. We discussed her low magnesium and need to replace. Discussed care with other providers and/or nursing. Patient has no complaint of chest discomfort, dyspnea, orthopnea, palpitations, nausea or vomiting, constipation or diarrhea, other changes in bowel habits, difficulty with urination, rash or itching, or other new complaints, except as mentioned above. Review of systems is otherwise negative. Examination: (Except as mentioned above): General: In no apparent distress. Alert and oriented 3. Nondiaphoretic. Head: Atraumatic and normocephalic. Respiratory: No use of accessory muscles. Lungs are clear throughout. Better airflow than my exam with her several days ago. Cardiovascular: Regular rate and rhythm without murmur appreciated. Abdomen: Bowel sounds are normal. No hepatosplenomegaly mass or tenderness appreciated. Extremities: No cyanosis clubbing or edema. Skin: Warm and non-diaphoretic with no new lesions noted. Original Note: Date of Encounter: 04/03/18 Time of Encounter: 11:32 - Assessment and plan (1) Weakness Current Visit: Yes Status: Acute Assessment and plan: Continue PT and OT. Will follow progress. 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 Continue inhaled meds. Continue O2 per nasal cannula. Qualifiers: COPD type: COPD with acute exacerbation Qualified Code(s): J44.1 - Chronic obstructive pulmonary disease with (acute) exacerbation (4) Afib Current Visit: Yes Status: Chronic Assessment and plan: Rate and Rhythm stable. Continue eliquis Qualifiers: Atrial fibrillation type: paroxysmal Qualified Code(s): I48.0 - Paroxysmal atrial fibrillation - Time Spent With Patient less than 15 minutes - Subjective Interval history: Participating well with therapy. Maintaining oxygen sets greater than 96% on 2 L per nasal cannula. Denies any other pain, fever, chills, nausea vomiting or diarrhea. Last bowel movement was this morning. - Constitutional Vitals: Temp Pulse Resp BP Pulse Ox 98.2 F 97 14 115/67 97 04/03/18 07:11 04/03/18 07:11 04/03/18 07:11 04/03/18 07:11 04/03/18 07:11 General appearance: Present: A&O X 3, pleasant, no acute distress, answers questions appropriately - Head Head exam: Present: atraumatic, normocephalic - Eye Eye exam: Present: PERRL, conjuntiva pink, sclera anicteric Pupils: Present: PERRL - Neck Neck exam general surgery: Present: supple, trachea midline. Absent: lymphadenopathy - Respiratory Respiratory exam: Present: CTAB. Absent: accessory muscle use, rales, rhonchi, wheezes Additional comments: Diminished bilateral bases - Cardiovascular Cardiovascular exam: Present: RRR, +S1, +S2. Absent: diastolic murmur, gallop, rubs, systolic murmur - GI/Abdominal GI/Abdominal exam: Present: normal bowel sounds, soft, no peritoneal signs. Absent: distended, tenderness - Extremities Exam Extremities exam: Present: warm, radial pulses palpable and symmetrical. Absent: calf tenderness, cyanotic, pedal edema - Neurological Exam Neurological exam: Present: CN II-XII intact, oriented X3, no focal deficits. Absent: pronater drift, facial droop, speech deficit - Skin Skin exam: Present: dry, intact Internal Medicine: Result - Labs CBC & Chem 7: 04/01/18 06:12 04/01/18 06:12 - ABG Interpretation ABG results: PT/INR, D-dimer PT 23.3 Seconds (9.4-12.1) H 03/25/18 05:25 Consult Discharge Plan - Plan Referrals: Hammad Romero MD [Primary Care Provider] -
[2018-04-03] MEDS: Mirtazapine 15 MG TABLET PO SCH (19:51)
[2018-04-04] MEDS: traMADol 50 MG TABLET PO PRN (06:50)
[2018-04-04] MEDS: Ipratropium/Albuterol Neb 3 ML IH SCH ×4 (08:59→19:54)
[2018-04-04] MEDS: Magnesium Oxide 400 MG TABLET PO SCH ×2 (09:05→21:39)
[2018-04-04] MEDS: Apixaban 5 MG TABLET PO SCH ×2 (09:05→18:05)
[2018-04-04] MEDS: Magic Mouthwash 10 ML UD Cup PO SCH ×3 (09:05→17:20)
[2018-04-04] MEDS: Cholecalciferol (D-3) 1,000 UNIT TABLET PO SCH (09:06)
[2018-04-04] MEDS: Ascorbic Acid 500 MG TABLET PO SCH (09:06)
--- NOTE | 2018-04-04 13:45 | Internal Med Progress Note ---
Date of Encounter: 04/04/18 Time of Encounter: 13:43 - Assessment and plan (1) COPD (chronic obstructive pulmonary disease) Current Visit: Yes Status: Chronic Assessment and plan: Patient appears relaxed. Patient noted to have some increased congestion to upper herbert with rhonchi heard. Afebrile. Recent chest x-ray showed small bilateral basilar pleural effusions. Patient to continue with physical therapy as tolerated. We will continue with current medications and plan a care. Qualifiers: COPD type: COPD with acute exacerbation Qualified Code(s): J44.1 - Chronic obstructive pulmonary disease with (acute) exacerbation (2) Nausea Current Visit: Yes Status: Acute Assessment and plan: Patient has had complaints of nausea which has responded well to Zofran. Patie nt states that despite chronic intermittent issue over past several months. Continue to monitor patient closely. No vomiting. (3) Afib Current Visit: Yes Status: Chronic Assessment and plan: No acute issues. Patient's ventricular rate has been well controlled less than 100. Will evaluate patient's current scheduled medications. He denies any chest palpitations or discomforts. Qualifiers: Atrial fibrillation type: paroxysmal Qualified Code(s): I48.0 - Paroxysmal atrial fibrillation - Time Spent With Patient less than 15 minutes - Subjective Interval history: Patient appears relaxed and currently denies any discomforts or shortness of breath. Patient continues to have a productive cough with thick grant sputum received. Patient states that she feels she is moving her phlegm easier. Patient reportedly had a fall at bedside last evening with no reported injuries. Patient denies any injuries at this time. - Constitutional Vitals: Temp Pulse Resp BP Pulse Ox 98.0 F 70 16 133/69 96 04/04/18 07:15 04/04/18 07:15 04/04/18 07:15 04/04/18 07:15 04/04/18 07:15 General appearance: Present: A&O X 3, pleasant, no acute distress, answers questions appropriately - Head Head exam: Present: atraumatic, normocephalic - Eye Eye exam: Present: PERRL, conjuntiva pink, sclera anicteric Pupils: Present: PERRL - Neck Neck exam general surgery: Present: supple, trachea midline. Absent: lymphadenopathy - Respiratory Respiratory exam: Present: CTAB, rhonchi. Absent: accessory muscle use, wheezes Additional comments: Lungs have rhonchi to upper herbert which clears somewhat with coughing. Fine posterior bibasilar rales heard. No wheezes. Respiratory effort appears rela xed while at rest - Cardiovascular Cardiovascular exam: Present: RRR, +S1, +S2. Absent: diastolic murmur, gallop, rubs, systolic murmur - GI/Abdominal GI/Abdominal exam: Present: normal bowel sounds, soft, no peritoneal signs. Absent: distended, tenderness - Extremities Exam Extremities exam: Present: warm, radial pulses palpable and symmetrical. Absent: calf tenderness, cyanotic, pedal edema - Neurological Exam Neurological exam: Present: CN II-XII intact, oriented X3, no focal deficits. Absent: pronater drift, facial droop, speech deficit - Skin Skin exam: Present: dry, intact Internal Medicine: Result - Labs CBC & Chem 7: 04/01/18 06:12 04/01/18 06:12 - ABG Interpretation ABG results: PT/INR, D-dimer PT 23.3 Seconds (9.4-12.1) H 03/25/18 05:25 Consult Discharge Plan - Plan Referrals: Hammad Romero MD [Primary Care Provider] -
[2018-04-04] MEDS: Mirtazapine 15 MG TABLET PO SCH (21:38)
[2018-04-05] MEDS: traMADol 50 MG TABLET PO PRN ×2 (01:53→20:39)
[2018-04-05] MEDS: Ipratropium/Albuterol Neb 3 ML IH SCH ×2 (07:23→14:02)
[2018-04-05] MEDS: Magic Mouthwash 10 ML UD Cup PO SCH ×3 (07:53→16:43)
[2018-04-05] MEDS: Magnesium Oxide 400 MG TABLET PO SCH ×2 (07:54→20:39)
[2018-04-05] MEDS: Cholecalciferol (D-3) 1,000 UNIT TABLET PO SCH (07:54)
[2018-04-05] MEDS: Ascorbic Acid 500 MG TABLET PO SCH (07:54)
[2018-04-05] MEDS: Apixaban 5 MG TABLET PO SCH ×2 (07:59→17:57)
[2018-04-05] MEDS: Ondansetron ODT 4 MG TAB.RAPDIS PO PRN (09:54)
--- NOTE | 2018-04-05 13:58 | Rehab Psychology Progress Note ---
Date of Encounter: 04/05/18 Time of Encounter: 10:30 Subjective - Patient Report Patient Report: Pt stated she is depressed. She discussed being upset over the weekend and awakening disoriented and losing her balance. She stated she was: tired; spends too much energy trying not to think about her situation; and has an upset stomach frequently. Discussed getting an eval at [facility] and the need for her to self advocate with PCP upon discharge from here. Objective - WHODAS Functional Impairment Concentration, Problem-solving, Communication: Mild Social Functioning: Mild - Comments Functional Status Comments: Discussed need to increase endurance and strength by working in therapy. Reads a lot to distract. Difficulty future planning because fear of . - Mental Status Mental Status Changes: OX3 Assessment and Plan - Diagnosis (1) Adjustment disorder with mixed anxiety and depressed mood - Response to Treatment Response to Treatment: Improved - Prognosis Prognosis: Good - Treatment Plan Treatment Plan Recommendations: Continue Current Plan/Goals Changes in Treatment Plan Goals: Discussed antidepressant medication-was agreeable thus will request at team meeting. Discussed increasing passive activities such as word search; coloring; crosswords. Goal: increase mood and decrease anxiety with development and training coping strategies. Rec continued counseling in [facility]. Procedures - Intervention Interventions: Cognitive/Behavioral Therapy - Modality Modality: Psychotherapy 30 minutes - Participants Therapy Participant: Patient - Session Time Session Start Time: 10:30 Session Stop Time: 11:00
[2018-04-05] MEDS ORDERED: Ipratropium/Albuterol Neb 3 ML IH PRN (14:05)
--- NOTE | 2018-04-05 15:01 | Internal Med Progress Note ---
Addendum entered and electronically signed by Lisa Mendiola 04/06/18 14:47: I have personally performed a face to face evaluation on this patient. I have reviewed and agree with the care plan. Original Note: Date of Encounter: 04/05/18 Time of Encounter: 14:59 - Assessment and plan (1) Weakness Current Visit: Yes Status: Acute Assessment and plan: Continue PT and OT. Will follow progress. 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 Continue inhaled meds. Continue O2 per nasal cannula. Qualifiers: COPD type: COPD with acute exacerbation Qualified Code(s): J44.1 - Chronic obstructive pulmonary disease with (acute) exacerbation (4) Afib Current Visit: Yes Status: Chronic Assessment and plan: Rate and Rhythm stable. Continue eliquis Qualifiers: Atrial fibrillation type: paroxysmal Qualified Code(s): I48.0 - Paroxysmal atrial fibrillation (5) Anxiety Current Visit: Yes Status: Acute Assessment and plan: agreed to start zoloft 50 mg daily. - Time Spent With Patient less than 15 minutes - Subjective Interval history: Participating well with therapy. Maintaining oxygen sets greater than 96% on room air. Denies any other pain, fever, chills, nausea vomiting or diarrhea. Last bowel movement was this morning. - Constitutional Vitals: Temp Pulse Resp BP Pulse Ox 98.7 F 85 19 128/74 95 04/05/18 07:00 04/05/18 07:00 04/05/18 07:26 04/05/18 07:00 04/05/18 07:26 General appearance: Present: A&O X 3, pleasant, no acute distress, answers questions appropriately Exam: thin - Head Head exam: Present: atraumatic, normocephalic - Eye Eye exam: Present: PERRL, conjuntiva pink, sclera anicteric Pupils: Present: PERRL - Neck Neck exam general surgery: Present: supple, trachea midline. Absent: lymphadenopathy - Respiratory Respiratory exam: Present: CTAB. Absent: accessory muscle use, rales, rhonchi, wheezes Additional comments: diminished bases - Cardiovascular Cardiovascular exam: Present: RRR, +S1, +S2. Absent: diastolic murmur, gallop, rubs, systolic murmur - GI/Abdominal GI/Abdominal exam: Present: normal bowel sounds, soft, no peritoneal signs. Absent: distended, tenderness - Extremities Exam Extremities exam: Present: warm, radial pulses palpable and symmetrical. Absent: calf tenderness, cyanotic, pedal edema - Neurological Exam Neurological exam: Present: CN II-XII intact, oriented X3, no focal deficits. Absent: pronater drift, facial droop, speech deficit - Skin Skin exam: Present: dry, intact Internal Medicine: Result - Labs CBC & Chem 7: 04/01/18 06:12 04/01/18 06:12 - ABG Interpretation ABG results: PT/INR, D-dimer PT 23.3 Seconds (9.4-12.1) H 03/25/18 05:25 Consult Discharge Plan - Plan Referrals: Hammad Romero MD [Primary Care Provider] -
[2018-04-05] MEDS: Mirtazapine 15 MG TABLET PO SCH (20:38)
[2018-04-06] MEDS: Ascorbic Acid 500 MG TABLET PO SCH (07:31)
[2018-04-06] MEDS: traMADol 50 MG TABLET PO PRN ×3 (07:32→21:54)
[2018-04-06] MEDS: Magnesium Oxide 400 MG TABLET PO SCH ×2 (07:32→20:29)
[2018-04-06] MEDS: Cholecalciferol (D-3) 1,000 UNIT TABLET PO SCH (07:32)
[2018-04-06] MEDS: Ondansetron ODT 4 MG TAB.RAPDIS PO PRN (07:32)
[2018-04-06] MEDS: Apixaban 5 MG TABLET PO SCH ×2 (07:34→18:16)
[2018-04-06] MEDS: Magic Mouthwash 10 ML UD Cup PO SCH ×3 (07:35→16:52)
--- NOTE | 2018-04-06 11:37 | Internal Med Progress Note ---
Addendum entered and electronically signed by Lisa Mendiola 04/06/18 15:03: ERROR Addendum below re Appetite entered on incorrect patient Addendum entered and electronically signed by Lisa Mendiola 04/06/18 14:55: RE Appetite and Oral intake PT has been on QID carafate Susp She reports this causes her to loose appetite and not eat meals action will change this to carafate tab BID Addendum entered and electronically signed by Lisa Mendiola 04/06/18 14:47: I have personally performed a face to face evaluation on this patient. I have re viewed and agree with the care plan. Original Note: Date of Encounter: 04/06/18 Time of Encounter: 11:35 - Assessment and plan (1) COPD (chronic obstructive pulmonary disease) Current Visit: Yes Status: Chronic Assessment and plan: Patient appears relaxed. No reported dyspnea or productive cough. Afebrile. Patient to continue with physical therapy as tolerated. We will continue with current medications and plan a care. Patient being prepared for possible discharge tomorrow. Qualifiers: COPD type: COPD with acute exacerbation Qualified Code(s): J44.1 - Chronic obstructive pulmonary disease with (acute) exacerbation (2) Nausea Current Visit: Yes Status: Acute Assessment and plan: Patient has had complaints of nausea which has responded well to Zofran. Patient states that despite chronic intermittent issue over past several months. Continue to monitor patient closely. No vomiting. (3) Afib Current Visit: Yes Status: Chronic Assessment and plan: No acute issues. Patient's ventricular rate has been well controlled less than 100. Will evaluate patient's current scheduled medications. He denies any chest palpitations or discomforts. Qualifiers: Atrial fibrillation type: paroxysmal Qualified Code(s): I48.0 - Paroxysmal atrial fibrillation - Time Spent With Patient less than 15 minutes - Subjective Interval history: Patient appears relaxed and currently denies any discomforts or shortness of breath. Patient continues to complain about generalized weakness. Patient states that she feels she is progressing in physical therapy. - Constitutional Vitals: Temp Pulse Resp BP Pulse Ox 98.0 F 87 18 131/66 93 04/06/18 07:30 04/06/18 07:30 04/06/18 07:30 04/06/18 07:30 04/06/18 07:37 General appearance: Present: A&O X 3, pleasant, no acute distress, answers questions appropriately - Head Head exam: Present: atraumatic, normocephalic - Eye Eye exam: Present: PERRL, conjuntiva pink, sclera anicteric Pupils: Present: PERRL - Neck Neck exam general surgery: Present: supple, trachea midline. Absent: lymphadenopathy - Respiratory Respiratory exam: Present: CTAB. Absent: accessory muscle use, rales, rhonchi, wheezes - Cardiovascular Cardiovascular exam: Present: RRR, +S1, +S2. Absent: diastolic murmur, gallop, rubs, systolic murmur - GI/Abdominal GI/Abdominal exam: Present: normal bowel sounds, soft, no peritoneal signs. Absent: distended, tenderness - Extremities Exam Extremities exam: Present: warm, radial pulses palpable and symmetrical. Absent: calf tenderness, cyanotic, pedal edema - Neurological Exam Neurological exam: Present: CN II-XII intact, oriented X3, no focal deficits. Absent: pronater drift, facial droop, speech deficit - Skin Skin exam: Present: dry, intact Internal Medicine: Result - Labs CBC & Chem 7: 04/01/18 06:12 04/01/18 06:12 - ABG Interpretation ABG results: PT/INR, D-dimer PT 23.3 Seconds (9.4-12.1) H 03/25/18 05:25 Consult Discharge Plan - Plan Referrals: Hammad Romero MD [Primary Care Provider] -
[2018-04-06] MEDS: Mirtazapine 15 MG TABLET PO SCH (20:28)
[2018-04-07 07:28] VITALS: BP 114/65
[2018-04-07] MEDS: Cholecalciferol (D-3) 1,000 UNIT TABLET PO SCH (08:38)
[2018-04-07] MEDS: Magnesium Oxide 400 MG TABLET PO SCH (08:38)
[2018-04-07] MEDS: Ascorbic Acid 500 MG TABLET PO SCH (08:39)
[2018-04-07] MEDS: traMADol 50 MG TABLET PO PRN (08:39)
[2018-04-07] MEDS: Ondansetron ODT 4 MG TAB.RAPDIS PO PRN (08:39)
[2018-04-07] MEDS: Apixaban 5 MG TABLET PO SCH (08:39)
[2018-04-07] MEDS: Magic Mouthwash 10 ML UD Cup PO SCH (08:40)
--- NOTE | 2018-04-07 11:20 | Discharge Summary ---
Addendum entered and electronically signed by Lisa Mendiola 04/07/18 12:30: I have personally performed a face to face evaluation on this patient. I have reviewed and agree with the care plan. History and Exam by me shows: Original Note: Date of Encounter: 04/07/18 Time of Encounter: 11:19 - Discharge Diagnosis (1) COPD (chronic obstructive pulmonary disease) Priority: Primary Status: Chronic Comments: Patient was transferred to this facility for [facility] after being treated for pneumonia and respiratory failure, which included intubation. Patient was transferred this facility for further rehabilitation due to generalized weakness. Patient has had some issues with hypoxia and productive cough which were treated and improved over a period of several days. Patient dissipated and physical therapy and progressed well. Patient will continue her physical therapy through home health services while at assisted living. Patient is recommended to follow-up with PCP in 1 week Qualifiers: COPD type: COPD with acute exacerbation Qualified Code(s): J44.1 - Chronic obstructive pulmonary disease with (acute) exacerbation (2) Nausea Priority: Secondary Status: Chronic Comments: Patient is a chronic intermittent nausea over the past several months, which has included a weight loss and malnutrition. Patient unable to pinpoint any triggers for her nausea. Patient has been started on Megace for improved appetite. Patient has maintained her weight while this facility. Patient responds well to when necessary Zofran. We will continue with current plan of care after discharge and request patient to follow-up with PCP in one week. (3) Afib Priority: Secondary Status: Chronic Comments: No acute issues during her stay at this facility. Patient's ventricular heart rate has remained less than 100. Patient's denied any chest discomforts or palpitations. We will continue on current home medications and follow-up with PCP. Qualifiers: Atrial fibrillation type: paroxysmal Qualified Code(s): I48.0 - Paroxysmal atrial fibrillation Hospital course: Ms. Michelle is a 78 year old female with an extensive medical history who was in her usual state of health, recently, until 03/14/2018. Then she had cough and dyspnea. She was admitted and found to have pneumonia, required intubation. She had an episode of PAD and underwent to episodes of ACLS with resumption of circulation, thereafter. She had paroxysmal atrial fibrillation and underwent catheter ablation in August. However, they punctured her heart and she developed effusions which required 3 chest tubes to correct, over time. She has been on Eliquis for some time. She has had multiple episodes of pneumonia and was admitted for same, in the past. She had a recurrent localized effusion, at the time of her recent pneumonia and was intubated for same on this admission. She is known to have a 2 to three-year history of nodules in her neck and a large nodule in her lung but this is apparently remained stable and is felt to be benign. 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 Her white blood count was recently as high as 40,000+ but returned to low low 30s which apparently is somewhere near her baseline. She has 3 strokes which have mainly made her leg, left worse than right, and have caused her to be unstable. Nothing has been worse, recently. However, when she is weakened from other illnesses, her leg weakness and instability increase. She had an MRI this admission which failed to show any evidence of new stroke. Patient has participated in physical therapy during her stay at this facility as progressed well. Patient states that she feels her oral intake has improved slightly after being started on Megace. Patient continues to have issues with intermittent nausea with no definite triggers identified. Patient responds well to Zofran and will be discharged with a prescription for Zofran. Patient is to continue her physical therapy to outpatient services while at assisted living. Patient is recommended to follow up with her research and development technician and PCP Discharge discussed with: patient Time spent discussing smoking cessation with patient: 3 to 10 minutes - Time Spent with Patient Total time spent providing and/or coordinating discharge services: Less than 30 minutes - Discharge Medications Prescriptions: New Ipratropium/Albuterol Neb [Duoneb] 3 ml IH [id number] PRN #60 inhsol PRN Reason: Shortness Of Breath/Wheezing Calcium Carbonate [Tums] 500 mg PO BID #70 tab.chew Cholecalciferol (D-3) [Vitamin D] 1,000 unit PO DAILY #40 tablet GuaiFENesin ER [Mucinex] 600 mg PO BID PRN #70 tbbp.12hr PRN Reason: Congestion Magnesium Oxide [Mag-Ox] 400 mg PO BID #70 tablet Megestrol Acetate [Megace] 40 mg PO DAILY #40 tablet Sertraline [Zoloft] 50 mg PO HS #40 tablet Continue Ondansetron HCl [Zofran] 4 mg PO Q6HR PRN PRN Reason: Nausea Acetaminophen [Tylenol] 650 mg PO Q4H PRN #100 tablet PRN Reason: Pain Apixaban [Eliquis] 5 mg PO 0800,1900 #70 tablet Atorvastatin [Lipitor] 20 mg PO HS #40 tablet Losartan Potassium 25 mg PO DAILY #40 tablet Mirtazapine 7.5 mg PO HS #40 tablet Pantoprazole Sodium [Protonix] 40 mg PO DAILY #40 tablet. Sotalol [Betapace] 40 mg PO QAM #40 tablet Sotalol [Betapace] 80 mg PO HS #40 tablet Discontinued Magnesium Oxide [Mag-Ox] 400 mg PO DAILY No Action Ascorbic Acid [Vitamin C] 250 mg PO DAILY Calcium Carbonate/Vitamin D3 [Calcium 500-Vit D3 200 Tablet] 1 each PO BID Ipratropium/Albuterol Neb [Duoneb] 3 ml IH 0800,1200,1600,2000 Loperamide HCl [Imodium A-D] 2 mg PO AD PRN PRN Reason: Diarrhea Mag Hydrox/Aluminum Hyd/Simeth [Cvs Antacid Plus Anti-Gas Liq] 30 ml PO QID PRN PRN Reason: Indigestion Sennosides/Docusate Sodium [Senna-S Tablet] 1 each PO BID PRN PRN Reason: Constipation Home Medications: Ascorbic Acid [Vitamin C] 250 mg PO DAILY 02/16/18 [History] Calcium Carbonate/Vitamin D3 [Calcium 500-Vit D3 200 Tablet] 1 each PO BID 02/16/18 [History] Ipratropium/Albuterol Neb [Duoneb] 3 ml IH 0800,1200,1600,2000 02/16/18 [History] Loperamide HCl [Imodium A-D] 2 mg PO AD PRN 02/16/18 [History] Mag Hydrox/Aluminum Hyd/Simeth [Cvs Antacid Plus Anti-Gas Liq] 30 ml PO QID PRN 02/16/18 [History] Ondansetron HCl [Zofran] 4 mg PO Q6HR PRN 02/16/18 [History] Sennosides/Docusate Sodium [Senna-S Tablet] 1 each PO BID PRN 02/16/18 [History] Acetaminophen [Tylenol] 650 mg PO Q4H PRN #100 tablet 04/07/18 [Rx] Apixaban [Eliquis] 5 mg PO 0800,1900 #70 tablet 04/07/18 [Rx] Atorvastatin [Lipitor] 20 mg PO HS #40 tablet 04/07/18 [Rx] Calcium Carbonate [Tums] 500 mg PO BID #70 tab.chew 04/07/18 [Rx] Cholecalciferol (D-3) [Vitamin D] 1,000 unit PO DAILY #40 tablet 04/07/18 [Rx] GuaiFENesin ER [Mucinex] 600 mg PO BID PRN #70 tbbp.12hr 04/07/18 [Rx] Ipratropium/Albuterol Neb [Duoneb] 3 ml IH [id number] PRN #60 inhsol 04/07/18 [Rx] Losartan Potassium 25 mg PO DAILY #40 tablet 04/07/18 [Rx] Magnesium Oxide [Mag-Ox] 400 mg PO BID #70 tablet 04/07/18 [Rx] Megestrol Acetate [Megace] 40 mg PO DAILY #40 tablet 04/07/18 [Rx] Mirtazapine 7.5 mg PO HS #40 tablet 04/07/18 [Rx] Pantoprazole Sodium [Protonix] 40 mg PO DAILY #40 tablet.dr 04/07/18 [Rx] Sertraline [Zoloft] 50 mg PO HS #40 tablet 04/07/18 [Rx] Sotalol [Betapace] 40 mg PO QAM #40 tablet 04/07/18 [Rx] Sotalol [Betapace] 80 mg PO HS #40 tablet 04/07/18 [Rx] Allergies/Adverse Reactions: Allergy/AdvReac Type Severity Reaction Status Date / Time sulfamethoxazole AdvReac Unknown Nausea Verified 02/16/18 14:49 [From Bactrim] levofloxacin [From Levaquin] AdvReac See Verified 02/16/18 14:49 Comments nitrofurantoin AdvReac See Verified 02/16/18 14:49 [From Macrobid] Comments trimethoprim [From Bactrim] AdvReac Nausea Verified 02/16/18 14:49 Date of admission: 03/24/18 19:15 Primary care physician: Hammad Romero MD Consults: 03/24/18 22:13 Consult to Occupational Therapy [CONS] Routine Comment: Evaluate, develop and implement POC Reason for Consult: weakness Does patient have active BEDREST order?: No Is patient medically & hemodynamically stable?: Yes Patient assessed for mobility or mobilized this visit?: No Consult to Physical Therapy [CONS] Routine Comment: Evaluate, develop and implement POC Reason for Consult: weakness Does patient have active BEDREST order?: No Is patient medically & hemodynamically stable?: Yes Patient assessed for mobility or mobilized this visit?: No Consult to Recreational Therapy [CONS] Routine Comment: Evaluate, develop and implement POC Consult to Septic Technician [CONS] Routine Reason for SW Consult: discharge planning Consult to Speech Therapy [CONS] Routine Comment: Evaluate, develop and implement POC Reason for Consult: ENSURE complaince with thickened liquids (pharyngeal dysphagia), which caused choking and PEA arrest at [facility], please follow Call Completed: Yes 03/25/18 11:53 Consult to Nutrition [CONS] Routine Comment: Consulting Provider: NUTRITION Reason for Dietary Consult: PO Supplementation Other:: protein/calorie malnutrition 03/28/18 12:27 Consult to Psychology [CONS] Routine Consulting Provider: Marleni Jane Reason for Consult: Possible depression; adjustment disorder Call Completed: No Discharging clinician: Lisa Mendiola - Constitutional Vitals: Temp Pulse Resp BP Pulse Ox 98.0 F 79 14 114/65 92 04/07/18 07:00 04/07/18 07:00 04/07/18 07:00 04/07/18 07:00 04/07/18 07:00 General appearance: Present: A&O X 3, pleasant, no acute distress, answers questions appropriately - Head Head exam: Present: atraumatic, normocephalic - Eye Eye exam: Present: PERRL, conjuntiva pink, sclera anicteric Pupils: Present: PERRL - Neck Neck exam general surgery: Present: supple, trachea midline. Absent: lymphadenopathy - Respiratory Respiratory exam: Present: CTAB. Absent: accessory muscle use, rales, rhonchi, wheezes - Cardiovascular Cardiovascular exam: Present: RRR, +S1, +S2. Absent: diastolic murmur, gallop, rubs, systolic murmur - GI/Abdominal GI/Abdominal exam: Present: normal bowel sounds, soft, no peritoneal signs. Absent: distended, tenderness - Extremities Exam Extremities exam: Present: warm, radial pulses palpable and symmetrical. Absent: calf tenderness, cyanotic, pedal edema - Neurological Exam Neurological exam: Present: CN II-XII intact, oriented X3, no focal deficits. Absent: pronater drift, facial droop, speech deficit - Skin Skin exam: Present: dry, intact - Patient Status Disposition: Home Health Service Condition: Good Functional capacity at discharge: uses cane/walker Overall status at discharge: patient is progressing back to baseline - Discharge Instructions Follow Up With: Hammad Romero MD [Primary Care Provider] - 04/13/18 1:15 pm - Diet and Activity Activity: ambulate only with your walker, as per physical therapy Diet: advance to your usual diet
--- NOTE | 2018-04-07 11:32 | Physician Discharge Referral ---
Addendum entered and electronically signed by Lisa Mendiola 04/07/18 12:29: I have personally performed a face to face evaluation on this patient. I have reviewed and agree with the care plan. Original Note: [facility] Referral Info Provider in Charge after Transfer: PCP Institutional Level of Care: Skilled - Diagnosis (1) COPD (chronic obstructive pulmonary disease) Priority: Primary Status: Chronic (2) Nausea Priority: Secondary Status: Chronic (3) Afib Priority: Secondary Status: Chronic Prognosis: Fair Aware of Diagnosis: Patient Aware of Prognosis: Patient - Transfer Medications Prescriptions: Ipratropium/Albuterol Neb [Duoneb] 3 ml IH [id number] PRN #60 inhsol PRN Reason: Shortness Of Breath/Wheezing Acetaminophen [Tylenol] 650 mg PO Q4H PRN #100 tablet PRN Reason: Pain Apixaban [Eliquis] 5 mg PO 0800,1900 #70 tablet Atorvastatin [Lipitor] 20 mg PO HS #40 tablet Calcium Carbonate [Tums] 500 mg PO BID #70 tab.chew Cholecalciferol (D-3) [Vitamin D] 1,000 unit PO DAILY #40 tablet GuaiFENesin ER [Mucinex] 600 mg PO BID PRN #70 tbbp.12hr PRN Reason: Congestion Losartan Potassium 25 mg PO DAILY #40 tablet Magnesium Oxide [Mag-Ox] 400 mg PO BID #70 tablet Megestrol Acetate [Megace] 40 mg PO DAILY #40 tablet Mirtazapine 7.5 mg PO HS #40 tablet Pantoprazole Sodium [Protonix] 40 mg PO DAILY #40 tablet. Sertraline [Zoloft] 50 mg PO HS #40 tablet Sotalol [Betapace] 40 mg PO QAM #40 tablet Sotalol [Betapace] 80 mg PO HS #40 tablet Home Medications: Ascorbic Acid [Vitamin C] 250 mg PO DAILY 02/16/18 [History] Calcium Carbonate/Vitamin D3 [Calcium 500-Vit D3 200 Tablet] 1 each PO BID 02/16/18 [History] Ipratropium/Albuterol Neb [Duoneb] 3 ml IH 0800,1200,1600,2000 02/16/18 [History] Loperamide HCl [Imodium A-D] 2 mg PO AD PRN 02/16/18 [History] Mag Hydrox/Aluminum Hyd/Simeth [Cvs Antacid Plus Anti-Gas Liq] 30 ml PO QID PRN 02/16/18 [History] Ondansetron HCl [Zofran] 4 mg PO Q6HR PRN 02/16/18 [History] Sennosides/Docusate Sodium [Senna-S Tablet] 1 each PO BID PRN 02/16/18 [History] Acetaminophen [Tylenol] 650 mg PO Q4H PRN #100 tablet 04/07/18 [Rx] Apixaban [Eliquis] 5 mg PO 0800,1900 #70 tablet 04/07/18 [Rx] Atorvastatin [Lipitor] 20 mg PO HS #40 tablet 04/07/18 [Rx] Calcium Carbonate [Tums] 500 mg PO BID #70 tab.chew 04/07/18 [Rx] Cholecalciferol (D-3) [Vitamin D] 1,000 unit PO DAILY #40 tablet 04/07/18 [Rx] GuaiFENesin ER [Mucinex] 600 mg PO BID PRN #70 tbbp.12hr 04/07/18 [Rx] Ipratropium/Albuterol Neb [Duoneb] 3 ml IH [id number] PRN #60 inhsol 04/07/18 [Rx] Losartan Potassium 25 mg PO DAILY #40 tablet 04/07/18 [Rx] Magnesium Oxide [Mag-Ox] 400 mg PO BID #70 tablet 04/07/18 [Rx] Megestrol Acetate [Megace] 40 mg PO DAILY #40 tablet 04/07/18 [Rx] Mirtazapine 7.5 mg PO HS #40 tablet 04/07/18 [Rx] Pantoprazole Sodium [Protonix] 40 mg PO DAILY #40 tablet.dr 04/07/18 [Rx] Sertraline [Zoloft] 50 mg PO HS #40 tablet 04/07/18 [Rx] Sotalol [Betapace] 40 mg PO QAM #40 tablet 04/07/18 [Rx] Sotalol [Betapace] 80 mg PO HS #40 tablet 04/07/18 [Rx] Allergies/Adverse Reactions: Allergy/AdvReac Type Severity Reaction Status Date / Time sulfamethoxazole AdvReac Unknown Nausea Verified 02/16/18 14:49 [From Bactrim] levofloxacin [From Levaquin] AdvReac See Verified 02/16/18 14:49 Comments nitrofurantoin AdvReac See Verified 02/16/18 14:49 [From Macrobid] Comments trimethoprim [From Bactrim] AdvReac Nausea Verified 02/16/18 14:49 - Respiratory Orders Oxygen / L per min (2 lpm NC prn for Ox sat <90) Smoking Cessation: Smoking cessation has been advised. For more information, call the [place] Tobacco Quit Line at 6-566-SPJW-NOW. - Lab Orders Lab Orders: 2 Step Mantoux Test per State regulation, CBC, U/A, Mario 17, CXR yearly - Ancillary Orders May use pressure relief devices daily prn, May go on KEVAN w/family/respon alliance party w/meds at nurse discretion PRN, May consult with Dentist, Director Speech And Hearing, Managed Care Liaison PRN - Advance Directives Living Will: No Power of Yard Pipe Grader for Health Care: No Code Status: Full Code - Mobility Orders Ambulate - Rehabiliation Orders Rehab Potential: Fair Rehab Orders: ROM Exercises, Evaluation for Physical Therapy, Evaluation for Occupational Therapy - Treatments Skin tear care topically daily PRN per policy, May check for fecal impaction rectally daily PRN, Fleet enema rectally every other day PRN cleansing purposes - Diet Orders Regular CERTIFICATION: I certify that the transfer of the above named patient to an Extended Care Facility is necessary for the continuing treatment of the diagnosis listed. The above information is true and accurate reflection of patient's current condition. Confidential - Redisclosure prohibited without a patient's written consent.
--- NOTE | 2018-04-07 11:33 | Physician Discharge Referral ---
Addendum entered and electronically signed by Lisa Mendiola 04/08/18 10:56: I have personally performed a face to face evaluation on this patient. I have reviewed and agree with the care plan. Addendum entered and electronically signed by Reji Amato CNP 04/07/18 13:06: Diet: Patient is on a Level 3 Advanced dysphasia diet with [place] thicken fluids. Pills are to be crushed in apple sauce or whole in pudding. Addendum entered and electronically signed by Lisa Mendiola 04/07/18 12:29: I have personally performed a face to face evaluation on this patient. I have reviewed and agree with the care plan. Original Note: Home Health/Hosp Referral Info Transfer to: Home Health Provider in Charge Post Discharge: PCP - Diagnosis (1) COPD (chronic obstructive pulmonary disease) Priority: Primary Status: Chronic (2) Nausea Priority: Secondary Status: Chronic (3) Afib Priority: Secondary Status: Chronic - Respiratory Orders Oxygen / L per min (2 LPM NC prn ox sat <90) Smoking Cessation: Smoking cessation has been advised. For more information, call the [place] Tobacco Quit Line at 1-682-YQWW-NOW. - Diet/Nutrition Diet/Nutrition Orders: Regular - Activity Activity Orders: Ambulate, Walker - Services Needed Following services are medically necessary services: Nursing, Home Health Aide, Physical Therapy, Occupational Therapy, Speech Therapy - Transfer Medications Prescriptions: Ipratropium/Albuterol Neb [Duoneb] 3 ml IH [id number] PRN #60 inhsol PRN Reason: Shortness Of Breath/Wheezing Acetaminophen [Tylenol] 650 mg PO Q4H PRN #100 tablet PRN Reason: Pain Apixaban [Eliquis] 5 mg PO 0800,1900 #70 tablet Atorvastatin [Lipitor] 20 mg PO HS #40 tablet Calcium Carbonate [Tums] 500 mg PO BID #70 tab.chew Cholecalciferol (D-3) [Vitamin D] 1,000 unit PO DAILY #40 tablet GuaiFENesin ER [Mucinex] 600 mg PO BID PRN #70 tbbp.12hr PRN Reason: Congestion Losartan Potassium 25 mg PO DAILY #40 tablet Magnesium Oxide [Mag-Ox] 400 mg PO BID #70 tablet Megestrol Acetate [Megace] 40 mg PO DAILY #40 tablet Mirtazapine 7.5 mg PO HS #40 tablet Pantoprazole Sodium [Protonix] 40 mg PO DAILY #40 tablet. Sertraline [Zoloft] 50 mg PO HS #40 tablet Sotalol [Betapace] 40 mg PO QAM #40 tablet Sotalol [Betapace] 80 mg PO HS #40 tablet Home Medications: Ascorbic Acid [Vitamin C] 250 mg PO DAILY 02/16/18 [History] Calcium Carbonate/Vitamin D3 [Calcium 500-Vit D3 200 Tablet] 1 each PO BID 02/16/18 [History] Ipratropium/Albuterol Neb [Duoneb] 3 ml IH 0800,1200,1600,2000 02/16/18 [History] Loperamide HCl [Imodium A-D] 2 mg PO AD PRN 02/16/18 [History] Mag Hydrox/Aluminum Hyd/Simeth [Cvs Antacid Plus Anti-Gas Liq] 30 ml PO QID PRN 02/16/18 [History] Ondansetron HCl [Zofran] 4 mg PO Q6HR PRN 02/16/18 [History] Sennosides/Docusate Sodium [Senna-S Tablet] 1 each PO BID PRN 02/16/18 [History] Acetaminophen [Tylenol] 650 mg PO Q4H PRN #100 tablet 04/07/18 [Rx] Apixaban [Eliquis] 5 mg PO 0800,1900 #70 tablet 04/07/18 [Rx] Atorvastatin [Lipitor] 20 mg PO HS #40 tablet 04/07/18 [Rx] Calcium Carbonate [Tums] 500 mg PO BID #70 tab.chew 04/07/18 [Rx] Cholecalciferol (D-3) [Vitamin D] 1,000 unit PO DAILY #40 tablet 04/07/18 [Rx] GuaiFENesin ER [Mucinex] 600 mg PO BID PRN #70 tbbp.12hr 04/07/18 [Rx] Ipratropium/Albuterol Neb [Duoneb] 3 ml IH [id number] PRN #60 inhsol 04/07/18 [Rx] Losartan Potassium 25 mg PO DAILY #40 tablet 04/07/18 [Rx] Magnesium Oxide [Mag-Ox] 400 mg PO BID #70 tablet 04/07/18 [Rx] Megestrol Acetate [Megace] 40 mg PO DAILY #40 tablet 04/07/18 [Rx] Mirtazapine 7.5 mg PO HS #40 tablet 04/07/18 [Rx] Pantoprazole Sodium [Protonix] 40 mg PO DAILY #40 tablet. 04/07/18 [Rx] Sertraline [Zoloft] 50 mg PO HS #40 tablet 04/07/18 [Rx] Sotalol [Betapace] 40 mg PO QAM #40 tablet 04/07/18 [Rx] Sotalol [Betapace] 80 mg PO HS #40 tablet 04/07/18 [Rx] Allergies/Adverse Reactions: Allergy/AdvReac Type Severity Reaction Status Date / Time sulfamethoxazole AdvReac Unknown Nausea Verified 02/16/18 14:49 [From Bactrim] levofloxacin [From Levaquin] AdvReac See Verified 02/16/18 14:49 Comments nitrofurantoin AdvReac See Verified 02/16/18 14:49 [From Macrobid] Comments trimethoprim [From Bactrim] AdvReac Nausea Verified 02/16/18 14:49 Certification: Further, I certify that my clinical findings support that this patient is homebound (i.e. absences from home require considerable and taxing effort and are for medical reasons or evangelical services or infrequently or short duration when for other reasons) because: Homebound Reason: Leaving home requires considerable and taxing effort due to condition Attestation: My signature below is to certify that this patient is under my care and that I, or nurse practitioner, or a physician's child care assistant working with me, has a [id number] encounter with this patient.
[2018-04-10] MEDS ORDERED: Fluconazole 100 MG TABLET PO ONE (09:00)
== END 2018-04-07 10:20 | disposition home health service (06) | DRG 945 ==
LOC: INPGRE 19:15